=== PATIENT | male | born 1960 | race Caucasian/White ===

== ENCOUNTER → 2024-01-27 07:51 | Outpatient (REF) | payer BC, SELFPAY | LOC: PET 07:51 | PROVIDERS: ATTENDING PHYSICIAN Internal Medicine Hematology & Oncology | DX: C34.12 Malignant neoplasm of upper lobe, left bronchus or lung (principal) | CPT/HCPCS: 78815; A9552 ==

== ENCOUNTER 2024-05-04 06:31 | Day surgery (SDC) | payer BC, SELFPAY ==
[2024-04-27 08:01] VITALS: BMI 30.4
[2024-05-04] VITALS (9 sets, daily range): BP systolic 104–128; BP diastolic 61–85
[2024-05-04] MEDS: TYLENOL 1000 MG PO (11:34)
--- NOTE | 2024-05-04 11:51 | W.SUR.PREOP ---
Pre-Operative Surgical Note
-
Due to surgical delay, access to the robot device unfortunately was not can to be until very late in the afternoon. I did offer the patient will laparoscopic versus open repair and after discussion with the patient and his they have elected to
pursue a laparoscopic right inguinal hernia repair with mesh. All questions answered, consent signed.
I have examined this patient prior to the performance of the scheduled procedure.
The patient's condition is unchanged from the time of the current History and
Physical and the patient is able to undergo the scheduled procedure.
[2024-05-04] MEDS: NORMOSOL-R 1000 IV (11:53)
--- NOTE | 2024-05-04 13:16 | W.IMMPOSTOP ---
Surgical Immed Post Op Note
-
Primary Surgeon: Jonathan Martinez MD
Assisting Surgeon: None
Pre-op Diagnosis: Right inguinal hernia
Post-op Diagnosis: Same
Procedure Performed: Laparoscopic right inguinal hernia repair with mesh (TEP approach)
Anesthesia Type: General
Specimen / Cultures: None
Estimated Blood Loss: 3 cc
Complications: None
Operative Findings: Small indirect inguinal hernia containing preperitoneal fat. No direct or femoral components. Small cord lipoma reduced and resected. Floor reinforced with a large standard weight Bard 3D max uncoated polypropylene mesh.
POST OP PLAN:
Will discharge home after voiding, with an ice pack.
--- NOTE | 2024-05-04 13:18 | OR.RPT ---
Operative Report
Operative Report
Patient Name: Darian Key
: 1960
Date of Operation: 05/04/2024
Preoperative Diagnosis: Reducible Inguinal hernia, right
Postoperative Diagnosis: Same
Procedure(s):
Laparoscopic Inguinal Hernia Repair with mesh, right (TEP approach)
Surgeon(s):
Dr. Martinez
Kitchen Assistant(s):
FREDO Spear
Anesthesia: General
Estimated Blood Loss: 3 cc
Urine Output: None
Drains/Lines/Implants: Large 3D Max Bard Mesh
Specimens: None
Indication for surgery: The patient has a history of groin pain and noted on exam to have a right inguinal Hernia. Though no hernia was appreciated on exam, he was noted to have a possible left inguinal hernia on his CT scan. He was initially
consented for a robotic surgery but due to timing, elected to do a laparoscopic repair instead.
Operative Findings: Small indirect inguinal hernia containing preperitoneal fat. No direct or femoral components. Small cord lipoma reduced and resected. Floor reinforced with a large standard weight Bard 3D max uncoated polypropylene mesh.
Details of the operation:
After inducing general anesthesia and endotracheal intubation, the patient was prepped and draped in the supine position with both arms tucked. After infiltration with 0.25% Marcaine, a Right periumbilical incision was made. Dissection was carried
down to the anterior sheath which was incised and the rectus muscle retracted laterally. An origin balloon was then inserted in through the posterior portion of the rectus into the preperitoneal space. This was insufflated under direct vision and
blunt dissection was therefore achieved in the preperitoneal space. The balloon was then removed and a 12mm Balloon trocar was placed. Two 5-mm ports were also placed in the midline below the camera port. Blunt dissection was used to dissect the
myopectineal orifice with care not to injure the epigastric vessels, gonadals or spermatic cord. Blunt dissection was used to identify the direct, indirect, and femoral spaces.
Right side:
The cord was inspected and an indirect hernia sac was noted and reduced.
There was a small cord lipoma that was reduced and resected.
There was no weakness in the direct space floor.
There was no femoral herniation.
A large 3D max mesh was then placed into position and positioned into the appropriate area to cover all 3 defects. No tacks were used.
The area was then completely infiltrated with 20 cc of Marcaine without epinephrine (0.25%). The insufflation was slowly decreased and the mesh was assured to be in proper position with desufflation. Some intra-abdominal pneumoperitoneum was
evacuated via a small rent made in the posterior rectus sheath, this was closed with a wdgwim-dw-gguyw 0 PDS suture. The Stacy trocar site was also closed with 0 PDS suture in a zoeucp-lj-[id number] fashion. The skin sites were all then closed with
running subcuticular 4-0 Monocryl suture followed by dermabond. Inspection of the scrotum revealed both testes to be in position. The patient returned to the recovery room in stable condition. Sponge and instrument counts were correct. No
specimen sent to pathology
I was the attending physician and performed the procedure with assistance from the RN EMBEDDED above. I was present for all portions of the case
Jonathan Martinez MD
== END 2024-05-04 15:13 | disposition home or self-care (01) ==
LOC: SDS 06:31
PROVIDERS: ATTENDING PHYSICIAN Surgery; FAMILY PHYSICIAN Family Medicine
DX: K40.90 Unilateral inguinal hernia, without obstruction or gangrene, not specified as recurrent (principal)
CPT/HCPCS: 49650; 36415; 93005

== ENCOUNTER → 2024-07-26 07:35 | Outpatient (REF) | payer BC, SELFPAY ==
[2024-07-26 09:15] LABS: ALT (SGPT) 19 U/L (0-50); AST (SGOT) 24 U/L (17-59); Albumin 4.3 g/dl (3.5-5.0); Alkaline Phosphatase 63 U/L (38-126); Blood Urea Nitrogen 18 mg/dl (9-20); Calcium 9.4 mg/dl (8.4-10.2); Carbon Dioxide 32 mmol/L (22-30); Chloride 99 mmol/L (98-107); Direct Bilirubin 0.1 mg/dl (0.0-0.4); Glucose 86 mg/dl (70-99); Potassium 4.1 mmol/L (3.5-5.1); Sodium 143 mmol/L (135-145); Total Bilirubin 0.6 mg/dl (0.2-1.3); eGFR > 60.00
[2024-07-26 09:52] LABS: TSH Reflex To Free T4 3.25 uIU/ml (0.47-4.68)
== END ==
LOC: REG 07:35
PROVIDERS: ATTENDING PHYSICIAN Internal Medicine Hematology & Oncology; FAMILY PHYSICIAN Family Medicine; REFERRING PHYSICIAN Internal Medicine Endocrinology, Diabetes & Metabolism
DX: E27.49 Other adrenocortical insufficiency (principal); C77.1 Secondary and unspecified malignant neoplasm of intrathoracic lymph nodes; C77.0 Secondary and unspecified malignant neoplasm of lymph nodes of head, face and neck; C34.12 Malignant neoplasm of upper lobe, left bronchus or lung
CPT/HCPCS: 36415; 71046; 80053; 82248; 84443

== ENCOUNTER 2024-07-28 06:19 | Day surgery (SDC) | payer BC, SELFPAY ==
[2024-07-14 14:36] VITALS: BMI 30.5
[2024-07-14 15:03] LABS: Hematocrit 41.6 % (39.0-52.0); Hemoglobin 14.2 g/dL (13.0-18.0); Mean Corp Hgb Conc. 34.1 g/dL (33.0-37.0); Mean Corpuscular Hgb 31.6 pg (27.0-31.0); Mean Corpuscular Volume 92.7 fL (80.0-94.0); Mean Platelet Volume 10.5 fL (7.4-10.4); Platelet Count 218 10^3/uL (130-400); Red Blood Cell Count 4.49 10^6/uL (4.70-6.10); Red Cell Dist. Width 11.9 % (11.5-14.5); White Blood Cell Count 5.9 10^3/uL (4.8-10.8)
[2024-07-28] VITALS (8 sets, daily range): BP systolic 107–134; BP diastolic 59–79
[2024-07-28] MEDS: TYLENOL 1000 MG PO (08:00)
[2024-07-28] MEDS: CELEBREX 200 MG PO (08:00)
== END 2024-07-28 11:25 | disposition home or self-care (01) ==
LOC: SDS 06:19
PROVIDERS: ATTENDING PHYSICIAN Specialist; FAMILY PHYSICIAN Family Medicine
DX: S83.242A Other tear of medial meniscus, current injury, left knee, initial encounter (principal); M22.42 Chondromalacia patellae, left knee; X58.XXXA Exposure to other specified factors, initial encounter; M25.562 Pain in left knee; M17.12 Unilateral primary osteoarthritis, left knee
CPT/HCPCS: 29881; 36415; 85027

== ENCOUNTER 2024-08-31 16:39 | Emergency (ER) | payer BC, SELFPAY ==
[2024-08-31 16:41] VITALS: BP 142/79
--- NOTE | 2024-08-31 18:58 | ED.GENMED ---
History of Present Illness
General
Chief Complaint: Back Pain
Source: patient and spouse
Time Seen by Provider: 08/31/24 17:13
History of Present Illness
History of Present Illness:
64-year-old male with past medical history of previous lung cancer, previous DVT, GERD, mild memory impairment presenting to the emergency department for evaluation of lower back pain that started this past Wednesday afternoon without any
exacerbations. Patient reports that day he did go to a local [employer] football game but states he did not do anything out of the ordinary that would have caused the back pain. Patient notes that he has seen pain management and received epidurals in
the past and that he was able to get an appointment with his pain management physician but this was not until the beginning of September. Patient reports that [id number]-[id number] medications have not given him much relief. He denies any fevers, bowel
or urinary incontinence, saddle anesthesias, focal weakness or numbness, traumatic injuries, abnormal weight loss, night sweats or any other concerns. Patient notes that movement seems to cause him the most discomfort.
Past History
Past History
ED Past Medical History: Cancer (Lung), GERD, Psychiatric and Other (DVT)
ED Past Surgical History: Orthopedic and Other
Social History
Tobacco: Former smoker
Alcohol: None
Drug: None
Personal:
Living: with family
Review of Systems
Review of Systems
All Other Systems: ROS reviewed and negative except as documented in HPI and ROS
Phy Exam
Physical Exam
Physical Exam:
GENERAL: Alert , in no apparent distress
EYE: clear conjunctiva b/l
NECK: Supple
ENT: o/p clr, mmm.
BACK: Normal range of motion but has discomfort while doing ROM, no focal tenderness, no midline bony tenderness, no rashes
NEUROLOGICAL: Alert and oriented, no focal neuro deficits. Patellar deep tendon reflexes intact and equal bilaterally, sensation grossly intact and equal to light touch bilateral lower extremities
SKIN: Warm and dry, skin intact.
MUSCULOSKELETAL: No edema, well perfused. EHL intact bilaterally
PSYCH: Normal and appropriate interaction.
Scores
Heart Failure Risk
Heart Failure Risk Score: Not Applicable
Heart Score for Chest Pain Patients
STEMI patient?: Not applicable
Withdrawal Assessment of Alcohol
Withdrawal Assessment Completed?: Not applicable
Course
Orders/Labs/Results
Orders:
Orders
08/31/24 17:40
CR Lumbar Spine Comp Min 4 Vw* Urgent
Comment:
Reason For Exam: low back pain
Vital Signs
Initial and Last Documented VS:
Initial Vital Signs
Temp Pulse Resp BP Pulse Ox
98.0 F 54 19 142/79 98
08/31/24 16:41 08/31/24 16:41 08/31/24 16:41 08/31/24 16:41 08/31/24 16:41
Last Documented Vital Signs
Temp Pulse Resp BP Pulse Ox
98.0 F 51 18 130/73 98
08/31/24 16:41 08/31/24 19:07 08/31/24 19:07 08/31/24 19:07 08/31/24 16:41
MDM/Problems Addressed
Differential Diagnosis Includes:
lumbar strain, spinal stenosis, DDD, disc herniation, nerve impingement, compression fracture. no concern for neurologic claudication/infectious etiology
MDM/Problems Addressed:
64-year-old male presenting to the emergency department for evaluation of lower back pain that started 3 days ago without injury. No focal neurologic symptoms nor infectious symptoms. Symptoms seem to be most pronounced with any type of movement.
I suspect more of a muscular etiology. Patient has had epidurals in the past. Has appointment arranged with a pain management provider. Will obtain x-ray as patient has not had any recent imaging.
*Radiology
Radiology exam reviewed: preliminary read by ED provider (Mild degenerative changes)
*Pulse Oximetry
Patient hypoxic: no
*Critical Care Note
Total Time (30-74mins, 75-104mins- exclusive of procedures): Not Applicable
Data Reviewed
Review of Other/Old Records Reveals: Radiology Studies (Recent PET scan which did not show any acute abnormalities. There was also a bone density scan which did show some osteopenia within the spine)
Patient Management
Escalation/DeEscalation of care consider admission/obs:
Discussed x-ray results with the patient. Prescriptions for Valium and Medrol Dosepak sent to pharmacy. Discussed side effects of Valium including drowsiness and sleepiness and to avoid if driving or mixing with alcohol or operating any heavy
machinery. Patient and expressed understanding. Stable for discharge home.
ED Attending Note
-
Portions of this chart may have been created with voice recognition software.� Occasional wrong word or��sound alike� substitutions may have occurred due to the inherent limitations of voice recognition software.
Discharge Plan
Departure
Patient Disposition: Home (Routine Discharge)
Date of Disposition: 08/31/24
Time of Disposition: 18:58
Patient with high blood pressure during this ER visit?: Yes
Discharge Problem:
Low back pain
Instructions: Low Back Pain (DC)
Prescriptions:
New
diazepam [Valium] 5 mg tablet
5 mg PO BID PRN (Reason: muscle spasm) Qty: 8 0RF
methylprednisolone [Medrol (Leo)] 4 mg tablets,dose pack
4 mg PO DIRECTED Qty: 21 0RF
No Action
acetaminophen 325 MG tablet
650 mg PO Q6HPRN PRN (Reason: mild pain/ fever>100.5F) 0RF
multivitamin [One Daily Essential] 1 EACH tablet
1 ea PO DAILY
magnesium 250 MG tablet
250 mg PO QPM
omeprazole 20 MG tablet,delayed release (DR/EC)
20 mg PO DAILY
hydrocortisone 20 MG tablet
15 mg PO DAILY
hydrocortisone 10 MG tablet
10 mg PO HS
cholecalciferol (vitamin D3) [Vitamin D3] 50 mcg (2,000 unit) Capsule
50 mcg PO DAILY
sertraline 100 mg Tablet
100 mg PO DAILY
aspirin 81 mg Tablet,Chewable
81 mg PO DAILY
calcium citrate 200 mg (950 mg) Tablet
400 mg PO DAILY
Glucosamine Chondroitin 550-30-1 mg Capsule
1 cap PO DAILY
donepezil 10 mg Tablet
10 mg PO DAILY
cetirizine [Zyrtec] 10 mg Tablet
10 mg PO HS
Referrals:
Vincent Portillo MD [Active] - (Pain Management)
Rome Mayberry MD [Family Provider] -
Interventions
Interventions:
*Risk Screen - Suicide Last Done: 08/31/24 16:41
*General Assessment Last Done: 08/31/24 16:41
*Neglect/Abuse Screening Last Done: 08/31/24 16:41
*Nursing Disposition Last Done: 08/31/24 19:07
ED-Musculoskeletal Assessment Last Done: 08/31/24 17:01
Discharge Date and Time
Discharge Date/Time: 08/31/24 19:08
Print Language: LAO
[2024-08-31 19:05] VITALS: BP 130/73
[2024-08-31 19:07] VITALS: BP 130/73
== END 2024-08-31 19:08 | disposition home or self-care (01) ==
LOC: EMR 16:39
PROVIDERS: EMERGENCY PHYSICIAN Emergency Medicine; FAMILY PHYSICIAN Family Medicine
DX: M54.50 Low back pain, unspecified (principal); K21.9 Gastro-esophageal reflux disease without esophagitis; Z86.718 Personal history of other venous thrombosis and embolism; Z87.891 Personal history of nicotine dependence
CPT/HCPCS: 99284; 72110

== ENCOUNTER 2024-12-12 19:18 | Inpatient (IN) | payer BC, MEDICARE, SELFPAY ==
[2024-12-12] VITALS (41 sets, daily range): BP systolic 59–131; BP diastolic 26–84; BMI 31.2
--- NOTE | 2024-12-12 13:28 | ED.GENMED ---
ED Provider Triage
<Roddy Ayon PA-C - Last Filed: 12/12/24 13:38>
-
Patient seen by provider in Triage?: Seen in Triage
Attestation: A medical screening examination has been initiated by a qualified medical provider. Based on the assessment performed at this time, it has been determined that an emergent medical condition may exist and the patient has been informed
that further medical evaluation and possible additional diagnostic testing may be needed.
HPI: 64-year-old male presents with his for evaluation of fever, coughing, and vomiting beginning yesterday. Last given Tylenol at 11 AM. Was tested for flu at home with a rapid csol-nhl-[id number] test and this was negative. History is limited
as the patient has underlying cognitive deficit
GENERAL: Alert , in no apparent distress
EYE: No visual abnormalities.
NECK: Trachea midline
ENT: No visible abnormalities.
LUNGS: No acute respiratory distress
NEUROLOGICAL: Alert and oriented
SKIN: Skin intact. No visible changes.
MUSCULOSKELETAL: Moving extremities normally
PSYCH: Normal and appropriate interaction.
This is a medical evaluation conducted in person to initiate diagnostic evaluation and provide initial therapeutics. Please see further documentation by the treating clinician.
History of Present Illness
<Roddy Ayon PA-C - Last Filed: 12/12/24 13:38>
General
Chief Complaint: Fever
Time Seen by Provider: 12/12/24 14:19
<John Andrea DO - Last Filed: 12/12/24 17:24>
General
Source: patient and spouse
Exam Limitations: none
History of Present Illness
History of Present Illness:
See MDM
Past History
<Roddy Ayon PA-C - Last Filed: 12/12/24 13:38>
Past History
ED Past Medical History: Cancer (Lung), GERD, Psychiatric and Other (DVT)
ED Past Surgical History: Orthopedic and Other
Social History
Tobacco: Former smoker
Alcohol: None
Drug: None
Personal:
Living: with family
Phy Exam
<John Andrea DO - Last Filed: 12/12/24 17:24>
Physical Exam
Physical Exam:
See MDM
Sepsis
<John Andrea DO - Last Filed: 12/12/24 17:24>
Sepsis Screening
Sepsis Assessment: Sepsis Ruled Out
Sepsis Screen
Sepsis Screen: Sepsis Ruled Out
Date: 12/12/24
Time: 17:24
Course
<Roddy Ayon PA-C - Last Filed: 12/12/24 13:38>
Orders/Labs/Results
Orders:
Orders
12/12/24 13:31
CR Chest - 2 Views Urgent
Comment:
Reason For Exam: cough
12/12/24 13:36
0.9% Sodium Chloride 1000 ml [Nss] 1,000 ml IV BOLUS
12/12/24 13:42
COVID-19 Antigen Urgent
Source: Nasal Swab
Complete Blood Count/With Diff Urgent
Comprehensive Metabolic Panel Urgent
Lactic Acid Urgent
Blood Culture Q30M
ANTONIO Source: Blood/Venous
Specimen Description:
Influenza A+B Rapid Molecular Urgent
ANTONIO Source: Nasal Swab
Specimen Description:
12/12/24 14:15
Blood Culture Q30M
ANTONIO Source: Blood/Venous
Specimen Description:
12/12/24 14:25
CT Head W/o Iv Contrast Urgent
Comment:
Reason For Exam: vomiting, headache
12/12/24 17:20
Urinalysis Reflex To Culture Urgent
Abnormal Lab Results
12/12/24
13:42
RBC 4.48 L 10^6/uL
(4.70-6.10)
Abs Immat Gran (auto) 0.1 H 10^3/uL
(0-0.05)
Absolute Monos (auto) 1.3 H 10^3/uL
(0.1-0.6)
Immature Gran % 0.8 H %
(0-0.5)
Lymphocytes % 13.3 L %
(20.5-51.1)
Monocytes % 14.0 H %
(1.7-9.3)
BUN 21 H mg/dl
(9-20)
Creatinine 1.8 H mg/dL
(0.7-1.3)
Total Protein 8.3 H g/dl
(6.3-8.2)
12/12/24 13:42
12/12/24 13:42
Vital Signs
Initial and Last Documented VS:
Initial Vital Signs
Temp Pulse Resp BP Pulse Ox
97.7 F 77 19 75/40 95
12/12/24 13:27 12/12/24 13:27 12/12/24 13:27 12/12/24 13:27 12/12/24 13:27
Last Documented Vital Signs
Temp Pulse Resp BP Pulse Ox
97.7 F 58 21 74/46 96
12/12/24 13:27 12/12/24 16:30 12/12/24 16:30 12/12/24 16:30 12/12/24 16:30
<John Andrea, DO - Last Filed: 12/12/24 17:24>
Orders/Labs/Results
Orders:
Orders
12/12/24 13:31
CR Chest - 2 Views Urgent
Comment:
Reason For Exam: cough
12/12/24 13:36
0.9% Sodium Chloride 1000 ml [Nss] 1,000 ml IV BOLUS
12/12/24 13:42
COVID-19 Antigen Urgent
Source: Nasal Swab
Complete Blood Count/With Diff Urgent
Comprehensive Metabolic Panel Urgent
Lactic Acid Urgent
Blood Culture Q30M
ANTONIO Source: Blood/Venous
Specimen Description:
Influenza A+B Rapid Molecular Urgent
ANTONIO Source: Nasal Swab
Specimen Description:
12/12/24 14:15
Blood Culture Q30M
ANTONIO Source: Blood/Venous
Specimen Description:
12/12/24 14:25
CT Head W/o Iv Contrast Urgent
Comment:
Reason For Exam: vomiting, headache
12/12/24 17:20
Urinalysis Reflex To Culture Urgent
Abnormal Lab Results
12/12/24
13:42
RBC 4.48 L 10^6/uL
(4.70-6.10)
Abs Immat Gran (auto) 0.1 H 10^3/uL
(0-0.05)
Absolute Monos (auto) 1.3 H 10^3/uL
(0.1-0.6)
Immature Gran % 0.8 H %
(0-0.5)
Lymphocytes % 13.3 L %
(20.5-51.1)
Monocytes % 14.0 H %
(1.7-9.3)
BUN 21 H mg/dl
(9-20)
Creatinine 1.8 H mg/dL
(0.7-1.3)
Total Protein 8.3 H g/dl
(6.3-8.2)
12/12/24 13:42
12/12/24 13:42
Vital Signs
Initial and Last Documented VS:
Initial Vital Signs
Temp Pulse Resp BP Pulse Ox
97.7 F 77 19 75/40 95
12/12/24 13:27 12/12/24 13:27 12/12/24 13:27 12/12/24 13:27 12/12/24 13:27
Last Documented Vital Signs
Temp Pulse Resp BP Pulse Ox
97.7 F 58 21 74/46 96
12/12/24 13:27 12/12/24 16:30 12/12/24 16:30 12/12/24 16:30 12/12/24 16:30
<John Andrea, DO - Last Filed: 12/12/24 17:24>
MDM/Problems Addressed
Differential Diagnosis Includes:
HPI and MDM Narrative:
64-year-old male presenting for evaluation of fatigue, fever and vomiting. Spouse noted fever yesterday. Patient was given Tylenol this morning but patient currently afebrile. Patient was found to be hypotensive in the emergency department. He
was brought back to the emergency department. IV fluids started. Blood work was obtained showing no significant abnormality other than mild evidence of dehydration. 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
the questions. Patient is able to acknowledge that he has a headache and does not feel well.
Given his history, will obtain CT head. IV fluids started. Given the fever and mild cough, will obtain chest x-ray. COVID and flu negative
Physical exam
General: Well appearing and non-toxic. Sitting in bed comfortably
HEENT: protecting airway. Dry mucous membranes
Neck: appears supple
CV: No evidence of cyanosis. Regular rate and rhythm
Resp: No accessory muscle use.
Abd: Non-distended
Extremities: No deformities
Neuro: alert
Psych: Normal affect
Skin: Intact
Problems Addressed including Acute and Chronic Conditions affecting care:
1. Dehydration
Acuity: acute
Prognosis: stable
Details: Will continue IV fluids
2. Vomiting and headache
Acuity: acute
Prognosis: stable
Details: Will obtain CT head
Updates
After 1 L IV fluid, patient looks better but still mildly hypotensive. Will continue IV fluids and admit. Patient is tolerating p.o. No source of fever obtained but will obtain urinalysis despite not having symptoms
Differential Diagnosis (but not limited to): Intracranial hemorrhage, viral syndrome, dehydration
Testing considered: Norovirus testing
Drug therapy (if applicable): OTC meds, please see d/c instruction regarding Rx drugs
Amount and/or Complexity of Data Reviewed
Clinical info obtained from: Patient and spouse
External data reviewed: N/A
Labs I independently reviewed (but not limited to): White blood cell count and lactic acid normal, mildly elevated creatinine
Radiology: The CT scan was personally and independently reviewed. In addition, official CT report reviewed.
X-ray independently reviewed: Chest x-ray clear
Pulse Ox: not hypoxic
EKG independently reviewed: N/A
Dry Drug Worker: Sinus rhythm
Critical Care: N/A
Risk of Complication:
Social Determinants of health: Good social support
Discussed with other providers: Hospitalist
Escalation of Care includes Admit/Obs: Given persistent hypotension, will continue IV fluid and admit
Occasional wrong word or 'sound a like' substitutions may have occurred due to the inherent limitations of voice recognition software. Read the chart carefully and recognize, using context, where substitutions have occurred.
<John Andrea DO - Last Filed: 12/12/24 17:24>
*Critical Care Note
Total Time (30-74mins, 75-104mins- exclusive of procedures): Not Applicable
ED Attending Note
<Roddy Ayon PA-C - Last Filed: 12/12/24 13:38>
-
Portions of this chart may have been created with voice recognition software.� Occasional wrong word or��sound alike� substitutions may have occurred due to the inherent limitations of voice recognition software.
Discharge Plan
Departure
Patient Disposition: Admit
Date of Disposition: 12/12/24
Time of Disposition: 17:23
Admit to: Med/Surg
Presentation/result/management discussed w/ accepting MD/DO: Hospitalist
Discharge Problem:
Dehydration, Weakness
Prescriptions:
No Action
acetaminophen 325 MG tablet
650 mg PO Q6HPRN PRN (Reason: mild pain/ fever>100.5F) 0RF
multivitamin [One Daily Essential] 1 EACH tablet
1 ea PO DAILY
magnesium 250 MG tablet
250 mg PO QPM
omeprazole 20 MG tablet,delayed release (DR/EC)
20 mg PO DAILY
hydrocortisone 20 MG tablet
15 mg PO DAILY
hydrocortisone 10 MG tablet
10 mg PO HS
cholecalciferol (vitamin D3) [Vitamin D3] 50 mcg (2,000 unit) Capsule
50 mcg PO DAILY
sertraline 100 mg Tablet
100 mg PO DAILY
aspirin 81 mg Tablet,Chewable
81 mg PO DAILY
calcium citrate 200 mg (950 mg) Tablet
400 mg PO DAILY
Glucosamine Chondroitin 550-30-1 mg Capsule
1 cap PO DAILY
donepezil 10 mg Tablet
10 mg PO DAILY
cetirizine [Zyrtec] 10 mg Tablet
10 mg PO HS
diazepam [Valium] 5 mg tablet
5 mg PO BID PRN (Reason: muscle spasm) Qty: 8 0RF
methylprednisolone [Medrol (Leo)] 4 mg tablets,dose pack
4 mg PO DIRECTED Qty: 21 0RF
Referrals:
Rome Mayberry MD [Family Provider] -
Interventions
Interventions:
*Risk Screen - Suicide Last Done: 12/12/24 14:45
*General Assessment Last Done: 12/12/24 14:17
*Neglect/Abuse Screening Last Done: 12/12/24 14:45
ED- Fall Risk Assessment Last Done: 12/12/24 14:47
*ED COVID-19 Vaccine History Last Done: 12/12/24 14:18
ED- Neurological Assessment Last Done: 12/12/24 14:45
ED-Skin Assessment Last Done: 12/12/24 14:47
Discharge Date and Time
Print Language: SWAZI
[2024-12-12] MEDS: NSS 1000 IV ×2 (13:45→22:16)
[2024-12-12 13:56] LABS: % Basophils 0.2 % (0-2); % Eosinophils 0.3 % (0-6); % Immature Granulocytes 0.8 % (0-0.5); % Lymphocytes 13.3 % (20.5-51.1); % Neutrophils 71.4 % (42.2-75.2); Absolute Immature Granulocytes 0.1 10^3/uL (0-0.05); Absolute Lymphocytes 1.2 10^3/uL (1.2-3.4); Absolute Monocytes 1.3 10^3/uL (0.1-0.6); Absolute Neutrophils 6.4 10^3/uL (1.4-6.5); Hematocrit 39.9 % (39.0-52.0); Hemoglobin 13.4 g/dL (13.0-18.0); Mean Corp Hgb Conc. 33.6 g/dL (33.0-37.0); Mean Corpuscular Hgb 29.9 pg (27.0-31.0); Mean Corpuscular Volume 89.1 fL (80.0-94.0); Mean Platelet Volume 10.4 fL (7.4-10.4); Nucleated Red Blood Cells % 0 % (-); Platelet Count 199 10^3/uL (130-400); Red Blood Cell Count 4.48 10^6/uL (4.70-6.10); Red Cell Dist. Width 12.3 % (11.5-14.5)
[2024-12-12 14:09] LABS: Lactic Acid 1.1 mmol/L (0.7-2.0)
[2024-12-12 14:10] LABS: ALT (SGPT) 17 U/L (0-50); AST (SGOT) 30 U/L (17-59); Albumin 4.8 g/dl (3.5-5.0); Alkaline Phosphatase 58 U/L (38-126); Blood Urea Nitrogen 21 mg/dl (9-20); Calcium 8.7 mg/dl (8.4-10.2); Carbon Dioxide 26 mmol/L (22-30); Chloride 98 mmol/L (98-107); Glucose 93 mg/dl (70-99); Potassium 3.8 mmol/L (3.5-5.1); Sodium 137 mmol/L (135-145); Total Bilirubin 0.8 mg/dl (0.2-1.3); Total Protein 8.3 g/dl (6.3-8.2)
[2024-12-12 14:16] LABS: COVID-19 Antigen Negative (Negative)
--- NOTE | 2024-12-12 18:21 | HPS.HSE ---
Family Physician
-
Family Physician: Rome Mayberry
Chief Complaint
-
Cough, vomiting
History of Present Illness
64-year-old male here complaining of cough, fever, for the past few days. was ill and diagnosed with acute influenza infection. Patient vomited this morning.
Patient is a limited historian and all information gathered by speaking with his . Patient does have dementia.
We were asked admit to the hospital due to persistent hypotension.
Medical History
Past Medical History
Past Medical History: Reports Other
Additional Past Medical History:
Adrenal insufficiency due to pembrolizumab
Primary progressive aphasia, dementia
History of non-small cell lung cancer, left upper lobe
Rheumatoid arthritis, in remission
Depression
Past Surgical History: Reports None
Social History
Tobacco: Former Smoker
Alcohol: None
Drug: None
Personal:
Living: With Family
Employment: Not Employed
Family History
Family History: Not pertinent
Allergies / Home Medications
Allergies reflects when Allergies were last updated in [facility].
Home Medications with original date entered in [facility]
Allergy/Medication List:
Allergies
Allergy/AdvReac Type Severity Reaction Status Date / Time
indomethacin [From Indocin] Allergy Unknown Unknown Verified 12/12/24 13:49
Home Medications
acetaminophen 325 mg tablet 650 mg (2 x 325 mg) PO Q6HPRN PRN mild pain/ fever>100.5F 07/20/20
magnesium 250 mg tablet 250 mg PO QPM Electrolyte Repletion 12/15/20
multivitamin (One Daily Essential tablet) 1 ea PO DAILY Supplement 12/15/20
omeprazole 20 mg tablet,delayed release 20 mg PO DAILY Gastrointestinal issue 12/15/20
hydrocortisone 10 mg tablet 10 mg PO HS Anti-inflammatory 12/16/20
hydrocortisone 20 mg tablet 15 mg PO DAILY Anti-inflammatory 12/16/20
cholecalciferol (vitamin D3) 50 mcg (2,000 unit) capsule (Vitamin D3) 50 mcg PO DAILY 09/07/22
aspirin 81 mg chewable tablet 81 mg PO DAILY 05/01/24
calcium citrate 400 mg PO DAILY 05/01/24
donepezil 10 mg tablet 10 mg PO DAILY 05/01/24
glucosamine sulf dipot chlr,msm,chond 550 mg-C 30 mg-sabina 1 mg capsule (Glucosamine Chondroitin) 1 cap PO DAILY 05/01/24
sertraline 100 mg tablet 100 mg PO DAILY 05/01/24
cetirizine 10 mg tablet (Zyrtec) 10 mg PO HS 07/21/24
diazepam 5 mg tablet (Valium) 5 mg PO BID PRN muscle spasm #8 tabs 08/31/24
methylprednisolone 4 mg tablets in a dose pack (Medrol (Leo)) 4 mg PO DIRECTED #21 ea 08/31/24
Review of Systems
-
Unable to obtain full review of systems at this time due to: Dementia
History Source: Patient and Family
A 12 point ROS was completed and negative except as noted: Yes
Physical Exam
Vital Signs
Vital Signs
Temp Pulse Resp BP Pulse Ox
97.7 F 53 21 97/45 100
12/12/24 13:27 12/12/24 18:15 12/12/24 18:15 12/12/24 18:15 12/12/24 18:15
Physical Exam
General: Well Developed, Well Nourished, No Apparent Distress and Comfortable
HEENT: NormoCephalic, Anicteric and Moist mucous membranes
Respiratory: Clear
Cardiac: S1/S2 and Regular Rhythm
Breast: Deferred by me
GI: Soft, Non Tender and Non Distended
Genito-urinary: Deferred by me
Musculoskeletal: No Clubbing, No Cyanosis and No Edema
Skin: Warm and Dry
Neuro: Awake and Alert
Hematologic/Lymphatic: No Lymphadenopathy
Psych: Calm
Laboratory Results
-
12/12/24 13:42
12/12/24 13:42
Laboratory Results
Lactic Acid 1.1 mmol/L (0.7-2.0) 12/12/24 13:42
Total Bilirubin 0.8 mg/dl (0.2-1.3) 12/12/24 13:42
AST 30 U/L (17-59) 12/12/24 13:42
ALT 17 U/L (0-50) 12/12/24 13:42
Alkaline Phosphatase 58 U/L (38-126) 12/12/24 13:42
Impression/Plan
-
Persistent hypotension -likely due to acute illness in the setting of chronic adrenal insufficiency and insufficient adrenal response. Give a stat dose of IV hydrocortisone 100 mg now. Continue IV hydrocortisone every 8 hours.
Continue IV fluid administration.
Admit to IMU. If hypotension persists will need vasopressor support and possible transfer to ICU. Discussed with at the bedside.
Does not look septic or toxic on exam. Not tachycardic. WBC count normal.
Patient is on chronic hydrocortisone 15 mg in the morning, 10 mg in the evening. He is under the care of endocrinology, Dr. Nj. He has been told in the past to double doses of steroids when ill, but his did not get a chance to double
the dose prior to coming into the hospital.
SEDRICK -suspect due to volume depletion and hypotension. Continue IV fluid support. Check bladder scan. Recheck labs in the morning.
History of lung cancer -treated with Keytruda and radiation.
Chronic adrenal insufficiency -due to pembrolizumab according to . On chronic hydrocortisone. Give stress dose steroids for the next 24 hours until hypotension resolves.
Primary progressive aphasia, dementia
Obesity due to excess calories
Full code
updated at the bedside.
[2024-12-12] MEDS: SOLU-CORTEF 100 MG IV (18:25)
[2024-12-12] MEDS: MUCINEX 600 MG PO (22:09)
[2024-12-12] MEDS: HEPARIN 5000 UNITS SC (22:10)
[2024-12-12] MEDS: ARICEPT 10 MG PO (22:11)
[2024-12-12 23:16] LABS: Urine Albumin 1+ (Neg - Trace); Urine Bilirubin Negative (Negative); Urine Character Clear (Clear); Urine Color Yellow; Urine Glucose Negative (Negative); Urine Ketone Negative (Negative); Urine Leukocyte Negative (Negative); Urine Nitrite Negative (Negative); Urine Occult Blood 1+ (Negative); Urine Specific Gravity 1.015 (<1.030); Urine Urobilinogen Negative (Neg - 1+)
[2024-12-13] VITALS (19 sets, daily range): BP systolic 93–129; BP diastolic 56–75
[2024-12-13] MEDS: TYLENOL 650 MG PO (00:05)
[2024-12-13 00:14] LABS: Urine Mucus Few
[2024-12-13 00:15] LABS: Urine Bacteria Moderate (Negative)
[2024-12-13] MEDS: SOLU-CORTEF 50 MG IV ×2 (02:20→10:53)
[2024-12-13 05:14] LABS: Blood Urea Nitrogen 18 mg/dl (9-20); Calcium 8.6 mg/dl (8.4-10.2); Carbon Dioxide 25 mmol/L (22-30); Chloride 102 mmol/L (98-107); Estimated Creatinine Clearance 101 ml/min; Glucose 120 mg/dl (70-99); Sodium 140 mmol/L (135-145); eGFR > 60.00
[2024-12-13] MEDS: PROTONIX 40 MG PO (07:55)
[2024-12-13] MEDS: MUCINEX 600 MG PO (07:55)
[2024-12-13] MEDS: ZOLOFT 150 MG PO (07:55)
[2024-12-13] MEDS: HEPARIN 5000 UNITS SC (07:56)
[2024-12-13] MEDS: NSS 1000 IV (08:01)
--- NOTE | 2024-12-13 11:55 | W.PN.HOSP.TC ---
Addendum entered and electronically signed by Mahesh Wheat DO 12/13/24 14:03:
Blood culture negative so far.
Hemodynamically improved. Patient feels well, no complaints.
Mild procalcitonin elevation noted, 0.64.
Clinically however I feel that he has a acute viral bronchitis. No evidence of pneumonia on chest x-ray. He is not hypoxic. No signs of sepsis.
Medically stable for discharge home today on double dose hydrocortisone for the next 48 hours. Follow-up closely with PCP and endocrinology.
All discharge instructions were provided to the patient's . All questions were answered.
Original Note:
Today's Communication/Plan
-
Check procalcitonin
Assessment / Plan
Assessment / Plan
Gen-awake, alert, NAD
HEENT-NC, AT, anicteric, clear oral mm
Neck-supple
CV-reg, no M, +S1/S2
Lungs-clear B/L
Abd-soft, NT, ND
Ext-no edema
Musculoskeletal-no cyanosis, clubbing
Skin-warm and dry
Neuro-grossly non-focal
Psych-calm, cooperative
Persistent hypotension -likely due to acute illness in the setting of chronic adrenal insufficiency and insufficient adrenal response.
Hypotension resolved with stress dose IV steroids.
Discussed with at the bedside to double up home doses of hydrocortisone on discharge for the next 48 hours and touch base with Dr. Nj, the patient's sound person.
Acute bronchitis - likely viral. Continue supportive treatment. Check procalcitonin.
SEDRICK -suspect due to volume depletion and hypotension. SEDRICK resolved.
History of lung cancer -treated with Keytruda and radiation.
Chronic adrenal insufficiency -due to pembrolizumab according to . On chronic hydrocortisone.
Primary progressive aphasia, dementia
Obesity due to excess calories
Full code
Dispo -possible discharge today if procalcitonin normal. Outpatient follow-up.
updated at the bedside.
Anticipated Discharge: Today
Subjective/Interval History
-
Date of Service: December 13, 2024
Patient seen/examined, no complaints.
Objective Data
-
Labs:
Laboratory Results
12/13/24
04:27
Sodium 140
Potassium 4.0
Chloride 102
Carbon Dioxide 25
BUN 18
Creatinine 0.9
Glucose 120 H
Calcium 8.6
Vital Signs:
Vital Signs
Temp Pulse Resp BP Pulse Ox
98.4 F 59 24 124/75 99
12/13/24 07:23 12/13/24 10:00 12/13/24 10:00 12/13/24 09:00 12/13/24 08:15
Review of Systems
-
History Source: Patient
All other systems: Reviewed and negative
[2024-12-13 12:20] LABS: Procalcitonin 0.64 ng/ml (0.0-0.25)
--- NOTE | 2024-12-13 14:02 | W.DS.TRANS ---
DC Summary - Yard Conductor
-
Discharge Instructions:
Discharge Diagnosis/Procedures Acute viral bronchitis
Diet Regular
Activity As tolerated
Driving Restrictions No driving
Bathing Restrictions None
Instructions:
Stand-Alone Forms:
Changes to Home Medications: No
Discharge Medications:
DC Medications w/original date entered in [facility]
acetaminophen 325 mg tablet 650 mg (2 x 325 mg) PO Q6HPRN PRN mild pain/ fever>100.5F 07/20/20
magnesium 250 mg tablet 250 mg PO QPM Electrolyte Repletion 12/15/20
multivitamin (One Daily Essential tablet) 1 ea PO DAILY Supplement 12/15/20
omeprazole 20 mg tablet,delayed release 20 mg PO DAILY Gastrointestinal issue 12/15/20
hydrocortisone 10 mg tablet 10 mg PO HS Anti-inflammatory 12/16/20
hydrocortisone 20 mg tablet 15 mg PO DAILY Anti-inflammatory 12/16/20
cholecalciferol (vitamin D3) 50 mcg (2,000 unit) capsule (Vitamin D3) 50 mcg PO DAILY 09/07/22
aspirin 81 mg chewable tablet 81 mg PO DAILY 05/01/24
calcium citrate 400 mg PO DAILY 05/01/24
donepezil 10 mg tablet 10 mg PO DAILY 05/01/24
diazepam 5 mg tablet (Valium) 5 mg PO BID PRN muscle spasm #8 tabs 08/31/24
sertraline 150 mg capsule 150 mg PO DAILY 12/12/24
guaifenesin 600 mg tablet, extended release 12 hr 600 mg PO Q12 #14 tabs 12/13/24
Home Medication Changes
Pending Results: No
== END 2024-12-13 14:54 | disposition home or self-care (01) | DRG 202 ==
LOC: ED 19:18
PROVIDERS: Physician Assistant; ADMITTING PHYSICIAN Hospitalist; EMERGENCY PHYSICIAN Student in an Organized Health Care Education/Training Program; FAMILY PHYSICIAN Family Medicine
DX: J20.8 Acute bronchitis due to other specified organisms (principal); N17.9 Acute kidney failure, unspecified; Z87.891 Personal history of nicotine dependence; Z11.52 Encounter for screening for COVID-19; E66.09 Other obesity due to excess calories; Z68.31 Body mass index [BMI] 31.0-31.9, adult
CPT/HCPCS: 70450; 71046; 80048; 80053; 81003; 81015; 83605; 84145; 85025; 87040; 87086; 87150; 87205; 87502; 87811

== ENCOUNTER → 2025-01-01 08:04 | Outpatient (REF) | payer BC, SELFPAY ==
[2025-01-01 09:27] LABS: % Basophils 0.6 % (0-2); % Eosinophils 2.7 % (0-6); % Immature Granulocytes 0.3 % (0-0.5); % Lymphocytes 20.9 % (20.5-51.1); % Monocytes 7.8 % (1.7-9.3); % Neutrophils 67.7 % (42.2-75.2); Absolute Eosinophils 0.2 10^3/uL (0-0.7); Absolute Lymphocytes 1.4 10^3/uL (1.2-3.4); Absolute Monocytes 0.5 10^3/uL (0.1-0.6); Absolute Neutrophils 4.4 10^3/uL (1.4-6.5); Hematocrit 41.1 % (39.0-52.0); Hemoglobin 13.2 g/dL (13.0-18.0); Mean Corp Hgb Conc. 32.1 g/dL (33.0-37.0); Mean Corpuscular Hgb 29.5 pg (27.0-31.0); Mean Corpuscular Volume 91.9 fL (80.0-94.0); Mean Platelet Volume 10.9 fL (7.4-10.4); Nucleated Red Blood Cells % 0 % (-); Platelet Count 220 10^3/uL (130-400); Red Blood Cell Count 4.47 10^6/uL (4.70-6.10); Red Cell Dist. Width 12.7 % (11.5-14.5); White Blood Cell Count 6.6 10^3/uL (4.8-10.8)
[2025-01-01 10:16] LABS: ALT (SGPT) 17 U/L (0-50); AST (SGOT) 23 U/L (17-59); Albumin 4.4 g/dl (3.5-5.0); Alkaline Phosphatase 62 U/L (38-126); Blood Urea Nitrogen 14 mg/dl (9-20); Calcium 9.6 mg/dl (8.4-10.2); Carbon Dioxide 29 mmol/L (22-30); Chloride 100 mmol/L (98-107); Glucose 89 mg/dl (70-99); Potassium 4.2 mmol/L (3.5-5.1); Sodium 139 mmol/L (135-145); Total Bilirubin 0.8 mg/dl (0.2-1.3); Total Protein 7.3 g/dl (6.3-8.2); eGFR > 60.00
[2025-01-01 10:25] LABS: TSH Reflex To Free T4 3.02 uIU/ml (0.47-4.68)
[2025-01-01 10:44] LABS: Vitamin B12 624 pg/ml (239-931)
== END ==
LOC: REG 08:04
PROVIDERS: ATTENDING PHYSICIAN Family Medicine
DX: C34.92 Malignant neoplasm of unspecified part of left bronchus or lung (principal); G93.41 Metabolic encephalopathy; E27.40 Unspecified adrenocortical insufficiency; D63.8 Anemia in other chronic diseases classified elsewhere; R79.9 Abnormal finding of blood chemistry, unspecified; R63.4 Abnormal weight loss; G93.40 Encephalopathy, unspecified; F32.1 Major depressive disorder, single episode, moderate; C34.90 Malignant neoplasm of unspecified part of unspecified bronchus or lung
CPT/HCPCS: 36415; 80053; 82607; 84443; 85025

== ENCOUNTER 2025-01-12 21:31 | Emergency (ER) | payer BC, MEDICARE, SELFPAY ==
[2025-01-12 21:33] VITALS: BP 126/99
[2025-01-12 22:23] VITALS: BMI 30.9
[2025-01-12 22:24] VITALS: BP 133/76
[2025-01-12] MEDS: ATIVAN 1 MG PO (22:35)
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
[2025-01-12 23:02] VITALS: BP 122/76
[2025-01-13] VITALS: BP 112/90
[2025-01-13 03:00] VITALS: BP 134/72
[2025-01-13 08:35] VITALS: BP 151/76
[2025-01-13] MEDS: ARICEPT 10 MG PO (09:34)
[2025-01-13] MEDS: ZOLOFT 50 MG PO (09:34)
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
[2025-01-13] MEDS: ABILIFY 2 MG PO (12:11)
[2025-01-13 12:18] VITALS: BP 134/78
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
[2025-01-13] MEDS: VERSED 5 MG IM (17:12)
[2025-01-13 17:25] VITALS: BP 127/78
[2025-01-13 17:32] LABS: % Basophils 0.6 % (0-2); % Eosinophils 3.6 % (0-6); % Immature Granulocytes 0.4 % (0-0.5); % Lymphocytes 17.4 % (20.5-51.1); % Monocytes 10.5 % (1.7-9.3); % Neutrophils 67.5 % (42.2-75.2); Absolute Eosinophils 0.3 10^3/uL (0-0.7); Absolute Lymphocytes 1.2 10^3/uL (1.2-3.4); Absolute Monocytes 0.7 10^3/uL (0.1-0.6); Absolute Neutrophils 4.7 10^3/uL (1.4-6.5); Hematocrit 35.7 % (39.0-52.0); Hemoglobin 12.1 g/dL (13.0-18.0); Mean Corp Hgb Conc. 33.9 g/dL (33.0-37.0); Mean Corpuscular Hgb 29.7 pg (27.0-31.0); Mean Corpuscular Volume 87.7 fL (80.0-94.0); Mean Platelet Volume 9.7 fL (7.4-10.4); Nucleated Red Blood Cells % 0 % (-); Platelet Count 236 10^3/uL (130-400); Red Blood Cell Count 4.07 10^6/uL (4.70-6.10); Red Cell Dist. Width 12.7 % (11.5-14.5); White Blood Cell Count 6.9 10^3/uL (4.8-10.8)
[2025-01-13 17:35] LABS: Urine Albumin 1+ (Neg - Trace); Urine Bilirubin Negative (Negative); Urine Character Clear (Clear); Urine Color Yellow; Urine Glucose Negative (Negative); Urine Ketone Negative (Negative); Urine Leukocyte 1+ (Negative); Urine Nitrite Negative (Negative); Urine Occult Blood Negative (Negative); Urine Urobilinogen 1+ (Neg - 1+)
[2025-01-13 17:48] LABS: COVID-19 Antigen Negative (Negative)
[2025-01-13 18:03] LABS: Amphetamines Negative (Negative); Barbiturates Negative (Negative); Benzodiazepines Positive (Negative); Buprenorphine Negative (Negative); Cocaine Negative (Negative); Marijuana Negative (Negative); Methadone Negative (Negative); Methamphetamines Negative (Negative); Opiates Negative (Negative); Phencyclidine Negative (Negative); Tricyclic Antidepressants Negative (Negative)
[2025-01-13 18:10] LABS: Urine Bacteria Few (Negative); Urine Red Blood Cell 0-2 /HPF (0-2); Urine Squamous Cell 0-2 /LPF (Few); Urine White Cell 0-2 /HPF (0-5)
[2025-01-13 18:23] LABS: ALT (SGPT) 15 U/L (0-50); AST (SGOT) 22 U/L (17-59); Acetaminophen < 10 ug/ml (10-30); Albumin 3.9 g/dl (3.5-5.0); Alkaline Phosphatase 63 U/L (38-126); Blood Urea Nitrogen 12 mg/dl (9-20); Calcium 9.4 mg/dl (8.4-10.2); Carbon Dioxide 27 mmol/L (22-30); Chloride 100 mmol/L (98-107); Estimated Creatinine Clearance 100 ml/min; Glucose 96 mg/dl (70-99); Potassium 3.8 mmol/L (3.5-5.1); Sodium 137 mmol/L (135-145); Total Bilirubin 0.6 mg/dl (0.2-1.3); Total Protein 6.9 g/dl (6.3-8.2); eGFR > 60.00
[2025-01-13 18:26] LABS: Alcohol None Detected
[2025-01-13 18:33] LABS: Fentanyl, Urine Negative (Negative)
[2025-01-13 18:36] LABS: TSH Reflex To Free T4 3.12 uIU/ml (0.47-4.68)
[2025-01-13 22:32] VITALS: BP 118/78
[2025-01-14] MEDS: ATIVAN 1 MG PO (01:23)
[2025-01-14] MEDS: ABILIFY 2 MG PO (09:00)
[2025-01-14 09:05] VITALS: BP 114/79
[2025-01-14 17:00] VITALS: BP 117/81
== END 2025-01-14 21:35 ==
LOC: EMR 21:31
PROVIDERS: CONSULT PHYSICIAN Psychiatry & Neurology Psychiatry; EMERGENCY PHYSICIAN Emergency Medicine; FAMILY PHYSICIAN Family Medicine
DX: R41.82 Altered mental status, unspecified (principal); F02.811 Dementia in other diseases classified elsewhere, unspecified severity, with agitation; Z11.52 Encounter for screening for COVID-19; Z87.891 Personal history of nicotine dependence; Z85.118 Personal history of other malignant neoplasm of bronchus and lung
CPT/HCPCS: 99285; 96372; 70450; 80053; 80143; 80306; 80307; 81003; 81015; 82077; 84443; 85025; 87086; 87811; 93005

== ENCOUNTER 2025-06-14 01:28 | Inpatient (IN) | payer BC, SELFPAY ==
[2025-06-13] VITALS (28 sets, daily range): BP systolic 83–160; BP diastolic 53–142; BMI 26.2
[2025-06-13 16:57] LABS: Hematocrit 30.4 % (39.0-52.0); Hemoglobin 10.0 g/dL (13.0-18.0); Mean Corp Hgb Conc. 32.9 g/dL (33.0-37.0); Mean Corpuscular Volume 88.6 fL (80.0-94.0); Nucleated Red Blood Cells % 0 % (-); Platelet Count 230 10^3/uL (130-400); Red Cell Dist. Width 12.8 % (11.5-14.5)
[2025-06-13 17:05] LABS: Glucose - Point of Care 140 mg/dl (70-99)
--- NOTE | 2025-06-13 17:06 | ED.GENMED ---
History of Present Illness
<Mahogany Harry MD - Last Filed: 06/13/25 20:08>
General
Chief Complaint: Change in Mental Status
Source: patient and records
Time Seen by Provider: 06/13/25 16:47
History of Present Illness
History of Present Illness:
This patient is a 65-year-old male presents the emergency department for reported change in mental status. Patient reportedly had a fall on Wednesday and he has a hematoma noted on the right side of his head. History limited given patient's history
of dementia. Reportedly staff noted 'slow' pupillary constriction and dark benitez colored stool. As per EMS staff, patient is at baseline. History unavailable from patient given dementia but he does not appear to be having any discomfort.
Past History
<Mahogany Harry MD - Last Filed: 06/13/25 20:08>
Past History
ED Past Medical History: Cancer (Lung in remission since January 2020), GERD, Psychiatric (Primary progressive aphasia with dementia) and Other (DVT)
ED Past Surgical History: Orthopedic and Other
Social History
Tobacco: Former smoker
Alcohol: None
Drug: None
Personal:
Living: with family
Employment: Retired
Family History
Family History: Other (Noncontributory)
Phy Exam
<Mahogany Harry MD - Last Filed: 06/13/25 20:08>
Physical Exam
Physical Exam:
GENERAL: Alert , in no apparent distress
EYE: pupils equal and reactive
NECK: Supple, no significant adenopathy, no midline tenderness.
ENT: o/p clr, mmm, there is a resolving hematoma noted at the left lateral forehead area.
CARDIAC: Regular rate and rhythm .
LUNGS: Clear breath sounds bilaterally, no acute respiratory distress, no wheezes/rales/rhonchi
ABDOMEN: Soft, without focal tenderness, no r/g, no cvat
NEUROLOGICAL: Awake and alert, confused, becoming slightly agitated, moves all extremities equally, no facial droop, speech clear
SKIN: Warm and dry, skin intact.
MUSCULOSKELETAL: No edema, well perfused.
PSYCH: Slight agitation
Course
<Mahogany Harry MD - Last Filed: 06/13/25 20:08>
Orders/Labs/Results
Orders:
Orders
06/13/25 16:34
Electrocardiogram (*1) Urgent
Reason for Study: Bradycardia / Tachycardia
06/13/25 16:35
EKG- Treatment ONCE
06/13/25 16:37
Complete Blood Count/With Diff Urgent
Comprehensive Metabolic Panel Urgent
PTT Urgent
Prothrombin Time Urgent
06/13/25 16:45
CT Head W/o Iv Contrast Urgent
Comment:
Reason For Exam: unwitnessed fall
Cervical Spine wo Contrast CT [CT Cervical Spine W/o Iv Contr] Urgent
Comment:
Reason For Exam: Unwitnessed fall
06/13/25 17:09
Lorazepam [Ativan] 1 mg IV NOW STA
06/13/25 17:55
Ankle, left 3 view CR [CR Ankle - Left Min 3 Views ] Urgent
Comment:
Reason For Exam: fall
06/13/25 19:36
Quetiapine Fumarate [Seroquel] 75 mg PO NOW STA
06/13/25 19:38
Midazolam HCl [Versed] 2 mg IM NOW STA
06/13/25 20:14
Hydrocortisone [Cortef] 5 mg PO NOW STA
06/13/25 22:45
Propofol [Diprivan] 20 ml .ROUTE .STK-MED
06/14/25 00:11
Pantoprazole [Protonix IV] 80 mg IV NOW STA
06/14/25 00:23
Urinalysis Reflex To Culture Urgent
Date Specimen was Collected: 06/14/25
Time Specimen was Collected: 00:18
06/14/25 00:42
Type+Screen Urgent
06/14/25 01:02
Admit/Transfer Patient As Directed
Co-Sign Provider:
Level of Care: Inpatient admission
Assign to:: Telemetry
Physician / Group: Kulwant
Diagnosis: GI bleed
Reason for Telemetry: Other
Other Reason for Telemetry: gi bleed
Date to Stop Telemetry: 06/16/25
Time to Stop Telemetry: 11:00
Reason for Hospitalization: GI bleed
Expected length of stay greater than two midnights?: Yes
ELOS- Estimated Length of Stay in days: 2
I certify the patient meets the requirements for IP care: Yes
PRN Pain Medication Management As Directed
May give lesser potent ordered pain med per pt: Yes
preference::
Protocol:: Medication orders for pain may be administered in a
manner that supports deferring to patient preference
when the pt is:
- Requesting an ordered lesser potent pain medication.
Least to most potent pain medications are defined
as: acetaminophen < NSAID < tramadol < opioids
(morphine, oxycodone, hydromorphone).
- Requesting a lesser dose of the same medication IF
ORDERED.
- Requesting a less intrusive route of administration
if both routes are prescribed by the provider (PO <
IV).
06/14/25 01:03
Code Status As Directed
Resuscitation Status: Full Code
06/14/25 02:13
Orthostatic Vital Signs DAILY
Orthostatic VS Frequency: Now
Comment: then every four hours for twenty-four hours
06/14/25 02:13
Consult Notification Routine
Specialty to Notify: Gastroenterology
GASTROINTESTINAL CONSULT Routine
Consulting Provider: Kika Figueroa
Was physician already notified: No
Reason for consult: upper gi bleed
Activity As Directed
Activity Level: With Assistance
INT (Intravenous Needle Therapy) As Directed
Comment: Place 2 IV catheters of the largest bore possible until stable
Sequential Compression Device [Pneumatic Compression Sleeves] As Directed
Type: Knee high
Vital Signs As Directed
Frequency: Per unit guidelines
DX Deep Vein Thrombosis Video Routine
06/14/25 Breakfast
Clear Liquid
At Your Request: Full Participation
Does patient need a safe tray?: No
Basic Metabolic Panel IN AM
Complete Blood Count/No Diff IN AM
06/14/25 08:00
Donepezil HCl [Aricept] 10 mg PO DAILY
Hydrocortisone [Cortef] 30 mg PO DAILY
Pantoprazole [Protonix IV] 40 mg IV BID
Sertraline HCl [Zoloft] 50 mg PO DAILY
06/14/25 14:00
H&H Q8H
06/14/25 22:00
Hydrocortisone [Cortef] 10 mg PO HS
06/16/25 11:00
DC Protocol for Telemetry ONCE
Abnormal Lab Results
06/13/25 06/13/25
16:37 17:02
RBC 3.43 L 10^6/uL
(4.70-6.10)
Hgb 10.0 L g/dL
(13.0-18.0)
Hct 30.4 L %
(39.0-52.0)
MCHC 32.9 L g/dL
(33.0-37.0)
Eosinophils % 8.0 H %
(0-6)
PT 15.5 H Sec
(11.4-14.6)
APTT 41.1 H Sec
(23.4-35.0)
Creatinine 0.6 L mg/dL
(0.7-1.3)
AST 16 L U/L
(17-59)
POC Glucose 140 H mg/dl
(70-99)
06/13/25 16:37
06/13/25 16:37
Vital Signs
Initial and Last Documented VS:
Initial Vital Signs
BP
125/96
06/13/25 16:26
Last Documented Vital Signs
Temp Pulse Resp BP Pulse Ox
37.5 C 67 17 95/52 96
06/14/25 00:10 06/14/25 03:00 06/14/25 03:00 06/14/25 03:00 06/14/25 03:00
<Jose Elias Kruger MD - Last Filed: 06/14/25 03:07>
Orders/Labs/Results
Orders:
Orders
06/13/25 16:34
Electrocardiogram (*1) Urgent
Reason for Study: Bradycardia / Tachycardia
06/13/25 16:35
EKG- Treatment ONCE
06/13/25 16:37
Complete Blood Count/With Diff Urgent
Comprehensive Metabolic Panel Urgent
PTT Urgent
Prothrombin Time Urgent
06/13/25 16:45
CT Head W/o Iv Contrast Urgent
Comment:
Reason For Exam: unwitnessed fall
Cervical Spine wo Contrast CT [CT Cervical Spine W/o Iv Contr] Urgent
Comment:
Reason For Exam: Unwitnessed fall
06/13/25 17:09
Lorazepam [Ativan] 1 mg IV NOW STA
06/13/25 17:55
Ankle, left 3 view CR [CR Ankle - Left Min 3 Views ] Urgent
Comment:
Reason For Exam: fall
06/13/25 19:36
Quetiapine Fumarate [Seroquel] 75 mg PO NOW STA
06/13/25 19:38
Midazolam HCl [Versed] 2 mg IM NOW STA
06/13/25 20:14
Hydrocortisone [Cortef] 5 mg PO NOW STA
06/13/25 22:45
Propofol [Diprivan] 20 ml .ROUTE .STK-MED
06/14/25 00:11
Pantoprazole [Protonix IV] 80 mg IV NOW STA
06/14/25 00:23
Urinalysis Reflex To Culture Urgent
Date Specimen was Collected: 06/14/25
Time Specimen was Collected: 00:18
06/14/25 00:42
Type+Screen Urgent
06/14/25 01:02
Admit/Transfer Patient As Directed
Co-Sign Provider:
Level of Care: Inpatient admission
Assign to:: Telemetry
Physician / Group: Kulwant
Diagnosis: GI bleed
Reason for Telemetry: Other
Other Reason for Telemetry: gi bleed
Date to Stop Telemetry: 06/16/25
Time to Stop Telemetry: 11:00
Reason for Hospitalization: GI bleed
Expected length of stay greater than two midnights?: Yes
ELOS- Estimated Length of Stay in days: 2
I certify the patient meets the requirements for IP care: Yes
PRN Pain Medication Management As Directed
May give lesser potent ordered pain med per pt: Yes
preference::
Protocol:: Medication orders for pain may be administered in a
manner that supports deferring to patient preference
when the pt is:
- Requesting an ordered lesser potent pain medication.
Least to most potent pain medications are defined
as: acetaminophen < NSAID < tramadol < opioids
(morphine, oxycodone, hydromorphone).
- Requesting a lesser dose of the same medication IF
ORDERED.
- Requesting a less intrusive route of administration
if both routes are prescribed by the provider (PO <
IV).
06/14/25 01:03
Code Status As Directed
Resuscitation Status: Full Code
06/14/25 02:13
Orthostatic Vital Signs DAILY
Orthostatic VS Frequency: Now
Comment: then every four hours for twenty-four hours
06/14/25 02:13
Consult Notification Routine
Specialty to Notify: Gastroenterology
GASTROINTESTINAL CONSULT Routine
Consulting Provider: Kika Figueroa
Was physician already notified: No
Reason for consult: upper gi bleed
Activity As Directed
Activity Level: With Assistance
INT (Intravenous Needle Therapy) As Directed
Comment: Place 2 IV catheters of the largest bore possible until stable
Sequential Compression Device [Pneumatic Compression Sleeves] As Directed
Type: Knee high
Vital Signs As Directed
Frequency: Per unit guidelines
DX Deep Vein Thrombosis Video Routine
06/14/25 Breakfast
Clear Liquid
At Your Request: Full Participation
Does patient need a safe tray?: No
Basic Metabolic Panel IN AM
Complete Blood Count/No Diff IN AM
06/14/25 08:00
Donepezil HCl [Aricept] 10 mg PO DAILY
Hydrocortisone [Cortef] 30 mg PO DAILY
Pantoprazole [Protonix IV] 40 mg IV BID
Sertraline HCl [Zoloft] 50 mg PO DAILY
06/14/25 14:00
H&H Q8H
06/14/25 22:00
Hydrocortisone [Cortef] 10 mg PO HS
06/16/25 11:00
DC Protocol for Telemetry ONCE
Abnormal Lab Results
06/13/25 06/13/25
16:37 17:02
RBC 3.43 L 10^6/uL
(4.70-6.10)
Hgb 10.0 L g/dL
(13.0-18.0)
Hct 30.4 L %
(39.0-52.0)
MCHC 32.9 L g/dL
(33.0-37.0)
Eosinophils % 8.0 H %
(0-6)
PT 15.5 H Sec
(11.4-14.6)
APTT 41.1 H Sec
(23.4-35.0)
Creatinine 0.6 L mg/dL
(0.7-1.3)
AST 16 L U/L
(17-59)
POC Glucose 140 H mg/dl
(70-99)
06/13/25 16:37
06/13/25 16:37
Vital Signs
Initial and Last Documented VS:
Initial Vital Signs
BP
125/96
06/13/25 16:26
Last Documented Vital Signs
Temp Pulse Resp BP Pulse Ox
37.5 C 67 17 95/52 96
06/14/25 00:10 06/14/25 03:00 06/14/25 03:00 06/14/25 03:00 06/14/25 03:00
Procedures
<Jose Elias Kruger MD - Last Filed: 06/14/25 03:07>
Moderate Sedation
ASA Risk Score: Class IV
Chart and allergies reviewed: Yes
Consent for anesthesia obtained: Yes
Time out completed (validating right patient & procedure): Yes
Moderate Sedation Start Time(when first medication is given): 23:15
History of difficult intubation: No
Airway free of obstruction: Yes
Patient has a gag reflex: Yes
Patient is able to open mouth: Yes
Patient has no dentures: Yes
Patient has no loose teeth: Yes
Medication administered by Provider during Moderate Sedation: IV Propofol (mg)
Total dose administered: 160
Time drug administered: 23:15
Moderate Sedation Procedure End Time: 23:46
<Jose Elias Kruger MD - Last Filed: 06/14/25 03:07>
MDM/Problems Addressed
MDM/Problems Addressed:
UPDATE (Jose Elias Kruger MD)
I have seen and evaluated the patient after signout and reviewed all labs and imaging.
Focused HPI: This is a 65-year-old male with medical history significant for dementia with agitation/behavioral issues associated, GERD, lung cancer currently in remission, chronic adrenal insufficiency on chronic steroids who presents to the
emergency room today from [facility] in [place]; he presents via EMS but is accompanied by his who provides most of the history�patient cannot meaningfully participate due to his baseline mentation. He presents today for
evaluation of change in mental status as well as dark stools. His says that he has been more agitated recently and she believes that this contributed to a fall that occurred on Wednesday. This was an unwitnessed fall but patient was noted to
have hematoma on the right forehead. Initially he was not evaluated in the emergency room but he had an assessment today by nursing staff and they felt that his pupillary reaction was sluggish and given recent fall recommended transport to the
emergency room for assessment. Staff also noted that patient has been having dark 'benitez stools' for the past few days. He is not on any blood thinners. He does however take chronic steroids and has history of GERD.
Physical exam: Patient is awake, occasionally agitated but redirectable. He is normotensive, heart rate in the 70s, respiratory rate 20-24 with normal pulse ox, no fever. He has a right forehead hematoma. Some bruising to the left ankle. He has
no other signs of significant trauma. He has no cardiac rubs gallops or murmurs and his lungs sound generally clear. His abdomen is soft not apparently tender. On rectal examination today he has black stool which is Hemoccult positive.
Medical Decision Makin-year-old male presents to the emergency room for evaluation of recent agitation and fall with head strike as well as recent black stools.
# Fall with head strike
Left ankle bruising and right forehead hematoma, no other signs of serious injury. He was sent for an ankle x-ray which showed no acute abnormalities. Plan was to obtain a CT of the head and cervical spine but this has unfortunately been very
difficult due to his agitation. He initially received Ativan to try and facilitate testing but this was not successful. He then received Seroquel and Versed but again this was unsuccessful. I had an extended conversation with the about the
utility of even obtaining CT. I asked her frankly whether she would act on any traumatic findings if they were detected on CT. She is very unsure about how aggressive she would be with her care if there was an injury but she is quite adamant that
she wishes to obtain the scan. We talked about options for facilitating scan at this point after he failed multiple medications for sedation and ultimately we decided that in order to facilitate the rest of his testing today we would proceed with a
moderate sedation to obtain CT scan�with 's permission we also obtained rectal exam under sedation and straight catheterization for urine to workup his recent agitation. CT was successfully obtained under sedation with me at bedside
continuously. No acute abnormalities noted.
# GI bleed
Dark stools reported for the past few days. No large-volume bowel movements here. He is hemodynamically stable (he had transient hypotension with sedation but this quickly resolved). He did have a 2 point drop in his hemoglobin compared to labs
from January. He is Hemoccult positive today takes chronic steroids likely this is upper GI bleeding. Will start IV PPI. I discussed with regarding treatment plan she prefers to keep him in the hospital to trend hemoglobin and monitor for
additional bleeding. Case was discussed with hospitalist for admission.
<Mahogany Harry MD - Last Filed: 06/13/25 20:08>
*Pulse Oximetry
Oxygen Mode of Delivery: Room air
<Jose Elias Kruger MD - Last Filed: 06/14/25 03:07>
*Pulse Oximetry
Patient hypoxic: yes (99%)
*Critical Care Note
Total Time (30-74mins, 75-104mins- exclusive of procedures): Not Applicable
<Jose Elias Kruger MD - Last Filed: 06/14/25 03:07>
Patient Management
Discussion with other providers: Hospitalist (Discussed with hospitalist)
Escalation/DeEscalation of care consider admission/obs:
Admission indicated
<Mahogany Harry MD - Last Filed: 06/13/25 20:08>
Update Note
Update Note:
Patient presents to the Emergency Department with ____abnormally colored stools, reportedly abnormal response of pupils
Number and Complexity of Problems Addressed at the Encounter
� Chronic conditions affecting care:
� Acute Exacerbation and/or Progression of Chronic Illness:
� Differential Diagnosis includes: But not limited to GI bleed, intracranial bleed, CVA, etc.
Amount and/or Complexity of Data to be Reviewed and Analyzed
� I performed an independent evaluation of and my interpretation is:
EKG: Read by me, normal sinus rhythm, normal rate, normal axis, no acute ischemia
CT:
Xrays: read by me ankle nad
Laboratory Studies: Generally unremarkable, mild anemia noted. This was discussed with particularly in the context of reported 'dark stool', and considering the intensity of workup here etc. she elects to follow hemoglobin
as an outpatient. No active bleeding here. Rectal exam not performed given patient's agitation.
Other:
� Review of other/old records reveals:
� Clinical information was obtained by an independent historian:
� Prescriptions/Medications Considered but not given:
� Further testing considered but not performed:
Risk of Complications and/or Morbidity or Mortality of Patient Management
� Social determinants of health affecting care:
� Discussion with other providers (PCP, Hospitalists, Consultants, etc):
� Escalation of care including admission/observation vs risk of discharge considered: now at bedside she states that patient has been calm increasingly agitated over the last few weeks. She states that she has not been able
to visit as much as usual given that her father just and her daughter has been away visiting, unclear in her opinion if this is contributing to his increasing agitation. We will continue with workup here, medicate for agitation, and reassess.
Of note, patient noted to have bruising and swelling of left ankle which may be related to recent fall. Will image here.
7:40 PM patient agitation is improved. However, when he went over to CAT scan he again became very agitated and study was not able to be performed. He is now back in his room. Long discussion with his . I will give him IM Versed as well as
his nighttime hydrocortisone and Seroquel, we will efforts to rescan him. Assuming scan unremarkable for new illness, patient will be transferred back to his facility, is comfortable and agreeable to this plan. Patient does not pose a danger
to himself or others at this time.
ED Attending Note
<Mahogany Harry MD - Last Filed: 06/13/25 20:08>
-
Portions of this chart may have been created with voice recognition software.� Occasional wrong word or��sound alike� substitutions may have occurred due to the inherent limitations of voice recognition software.
Discharge Plan
Departure
Patient Disposition: Admit
Date of Disposition: 06/14/25
Time of Disposition: 00:09
Admit to doctor: Kulwant
Presentation/result/management discussed w/ accepting MD/DO: Hospitalist
Condition: Fair
Discharge Problem:
Traumatic hematoma of forehead, GI bleed, Acute blood loss anemia
Interventions
Interventions:
*Risk Screen - Suicide Last Done: 06/13/25 17:00
*General Assessment Last Done: 06/13/25 16:37
*Neglect/Abuse Screening Last Done: 06/13/25 16:39
*ED COVID-19 Vaccine History Last Done: 06/13/25 16:39
ED- Neurological Assessment Last Done: 06/13/25 17:18
ED- Cardiac Assessment Last Done: 06/13/25 17:18
ED Swallowing Screen Last Done: 06/13/25 20:15
[2025-06-13 17:08] LABS: INR 1.17; PT 15.5 Sec (11.4-14.6)
[2025-06-13 17:09] LABS: APTT 41.1 Sec (23.4-35.0)
[2025-06-13] MEDS: ATIVAN 1 MG IV (17:13)
[2025-06-13 17:17] LABS: ALT (SGPT) < 10 U/L (0-50); AST (SGOT) 16 U/L (17-59); Albumin 3.8 g/dl (3.5-5.0); Alkaline Phosphatase 47 U/L (38-126); Blood Urea Nitrogen 14 mg/dl (9-20); Calcium 8.8 mg/dl (8.4-10.2); Carbon Dioxide 26 mmol/L (22-30); Chloride 105 mmol/L (98-107); Glucose 88 mg/dl (70-99); Potassium 3.7 mmol/L (3.5-5.1); Sodium 138 mmol/L (135-145); Total Protein 6.9 g/dl (6.3-8.2); eGFR > 60.00
[2025-06-13] MEDS: CORTEF 5 MG PO (20:29)
[2025-06-13] MEDS: SEROQUEL 75 MG PO (20:29)
[2025-06-13] MEDS: VERSED 2 MG IM (21:10)
[2025-06-14] VITALS (32 sets, daily range): BP systolic 52–133; BP diastolic 30–72; BMI 26.2; BMI 25.0
[2025-06-14] MEDS: PROTONIX IV 80 MG IV (00:20)
--- NOTE | 2025-06-14 00:46 | HPS.HSE ---
Addendum entered and electronically signed by Bowen Blum MD 06/14/25 07:14:
Spoke with patient family Ms Key this morning. She will like to review goals of care before any procedures. I told her that she will be contacted before any procedure is performed. She will also like to discuss with palliative care which may be
consulted after discussing with team in am. Code status was still full code but may be changed after discussion.
Original Note:
Family Physician
-
Family Physician: NICCI MURCIA NP
Chief Complaint
-
Change in mental status
History of Present Illness
This is a 65-year-old male with past medical history significant for progressive dementia, history of stage IV lung cancer status post chemo, adrenal insufficiency, presenting to the emergency department with complaint of altered mental status.
He had a fall on Wednesday and he has a hematoma noted on the right side of his head. Staff reported that he had slow pupillary constriction and benitez colored stool. However per EMS and staff patient is currently at baseline. He does not appear to
be in any discomfort but is somewhat agitated.
There is some concern for GI bleed as patient has dark heme positive stool in the ED. And his hemoglobin has gone down to 10 from a baseline of around 12 in December. He is not on any thinners. He has no history of GI bleed, no recent colonoscopy
or EGD.
In the emergency department his blood pressure was 108/60 (was transiently hypotensive after getting sedatives for CT scan). Pulse rate 61 oxygen saturation 98 temp of 99.5. ECG shows normal sinus rhythm at a rate of 62 and unchanged on prior. CT
of the head was negative for intracranial bleed or any other acute intracranial process. The C-spine was negative for any acute trauma.
Hemoglobin was 10, MCV was normal. Platelet was normal. INR was normal. Electrolytes BUN/creatinine were all in the normal range. UA is pending.
Medical History
Past Medical History
Past Medical History: Reports Other
Additional Past Medical History:
Adrenal insufficiency due to pembrolizumab
Primary progressive aphasia, dementia
History of non-small cell lung cancer, left upper lobe
Rheumatoid arthritis, in remission
Depression
Past Surgical History: Reports None
Social History
Tobacco: Former Smoker
Alcohol: None
Drug: None
Personal:
Living: With Family
Employment: Not Employed
Family History
Family History: Not pertinent
Allergies / Home Medications
Allergies reflects when Allergies were last updated in [employer].
Home Medications with original date entered in [employer]
Allergy/Medication List:
Allergies
Allergy/AdvReac Type Severity Reaction Status Date / Time
indomethacin [From Indocin] Allergy Unknown Unknown Verified 12/12/24 13:49
Home Medications
acetaminophen 325 mg tablet 650 mg (2 x 325 mg) PO Q6HPRN PRN mild pain/ fever>100.5F 07/20/20
magnesium 250 mg tablet 250 mg PO QPM Electrolyte Repletion 12/15/20
multivitamin (One Daily Essential tablet) 1 ea PO DAILY Supplement 12/15/20
omeprazole 20 mg tablet,delayed release 20 mg PO DAILY Gastrointestinal issue 12/15/20
hydrocortisone 10 mg tablet 10 mg PO HS Anti-inflammatory 12/16/20
hydrocortisone 20 mg tablet 15 mg PO DAILY Anti-inflammatory 12/16/20
cholecalciferol (vitamin D3) 50 mcg (2,000 unit) capsule (Vitamin D3) 50 mcg PO DAILY 09/07/22
aspirin 81 mg chewable tablet 81 mg PO DAILY 05/01/24
calcium citrate 400 mg PO DAILY 05/01/24
donepezil 10 mg tablet 10 mg PO DAILY 05/01/24
glucosamine sulf dipot chlr,msm,chond 550 mg-C 30 mg-sabina 1 mg capsule (Glucosamine Chondroitin) 1 cap PO DAILY 05/01/24
sertraline 100 mg tablet 100 mg PO DAILY 05/01/24
cetirizine 10 mg tablet (Zyrtec) 10 mg PO HS 07/21/24
diazepam 5 mg tablet (Valium) 5 mg PO BID PRN muscle spasm #8 tabs 08/31/24
methylprednisolone 4 mg tablets in a dose pack (Medrol (Leo)) 4 mg PO DIRECTED #21 ea 08/31/24
Review of Systems
-
Unable to obtain full review of systems at this time due to: Dementia
Physical Exam
Vital Signs
Vital Signs
Temp Pulse Resp BP Pulse Ox
99.5 F 61 17 108/60 99
06/14/25 00:10 06/14/25 00:20 06/14/25 00:20 06/14/25 00:20 06/14/25 00:20
Physical Exam
General: Other (Sleepy and sedated after propofol bolus for CT scan)
HEENT: NormoCephalic, Anicteric and Moist mucous membranes; No Oxygen
Respiratory: Clear
Cardiac: S1/S2 and Regular Rhythm
Breast: Deferred by me
GI: Soft, Non Tender and Non Distended
Rectal: Brown and Hem Positive
Genito-urinary: Deferred by me
Musculoskeletal: No Clubbing, No Cyanosis and No Edema
Skin: Warm and Dry; No Jaundice
Neuro: Nonfocal/grossly intact and Sedated
Hematologic/Lymphatic: No Lymphadenopathy
Psych: Calm
Laboratory Results
-
06/13/25 16:37
06/13/25 16:37
Laboratory Results
PT 15.5 Sec (11.4-14.6) H 06/13/25 16:37
INR 1.17 06/13/25 16:37
APTT 41.1 Sec (23.4-35.0) H 06/13/25 16:37
Total Bilirubin 0.5 mg/dl (0.2-1.3) 06/13/25 16:37
AST 16 U/L (17-59) L 06/13/25 16:37
ALT < 10 U/L (0-50) 06/13/25 16:37
Alkaline Phosphatase 47 U/L (38-126) 06/13/25 16:37
Impression/Plan
-
IMPRESSION:
This is a 65-year-old with progressive dementia, renal insufficiency, and known chronic anemia presenting to the emergency department following a fall and head strike few days ago and development of alteration in mental status. Patient is
apparently back to baseline per EMS and staff. However family is sleepy secondary to propofol after being agitated isatu. The CT of the head was negative. C-spine was negative. Is hemoglobin was 10 down from 12 a few months ago. MCV was
unremarkable. Has heme positive dark stools in the ED and was read to have dark benitez colored stool at the skilled nursing.
PLAN:
Melena - suspected melena with heme positive dark stools, benitez colored stools at skilled nursing, drop in hemoglobin. Patient unable to provide much history. HD stable, hemoglobin 10
-Admit to telemetry
-IV PPI twice daily
-Started with clear liquid diet for now
- type and screen, H&H q 8 for now
- holding asa 81
-Increase hydrocortisone steroids to double the regular dose
-Orthostatic vital signs in a.m.
-GI consultation
AMS - Possible 2/2 fall.
- U/A pending
- monitoring vitals and H/H as above
DVT PPX - SCD
Code status - Full code
[2025-06-14 02:33] LABS: Urine Character Clear (Clear)
[2025-06-14] MEDS: SOLU-CORTEF 50 MG IV (03:33)
[2025-06-14] MEDS: NSS 500 IV (03:33)
[2025-06-14 05:38] LABS: Hematocrit 27.8 % (39.0-52.0); Hemoglobin 9.4 g/dL (13.0-18.0); Mean Corp Hgb Conc. 33.8 g/dL (33.0-37.0); Mean Corpuscular Volume 86.9 fL (80.0-94.0); Platelet Count 179 10^3/uL (130-400); Red Cell Dist. Width 12.8 % (11.5-14.5)
[2025-06-14 05:56] LABS: Blood Urea Nitrogen 10 mg/dl (9-20); Calcium 8.1 mg/dl (8.4-10.2); Carbon Dioxide 24 mmol/L (22-30); Chloride 111 mmol/L (98-107); Estimated Creatinine Clearance > 125 ml/min; Glucose 99 mg/dl (70-99); Potassium 3.9 mmol/L (3.5-5.1); Sodium 141 mmol/L (135-145); eGFR > 60.00
[2025-06-14] MEDS: ZOFRAN 4 MG IV (07:46)
[2025-06-14] MEDS: PROTONIX IV 40 MG IV ×2 (09:14→20:48)
[2025-06-14] MEDS: NSS (PRESERVATIVE FREE) 10 ML IV ×2 (09:14→20:49)
[2025-06-14] MEDS: CORTEF PO ×2 (09:14→09:17)
[2025-06-14] MEDS: ARICEPT PO ×2 (09:14→09:16)
[2025-06-14] MEDS: ZOLOFT PO ×2 (09:14→09:17)
[2025-06-14] MEDS: ARICEPT 10 MG PO (09:28)
[2025-06-14] MEDS: CORTEF 30 MG PO (09:29)
[2025-06-14] MEDS: ZOLOFT 50 MG PO (09:30)
--- NOTE | 2025-06-14 11:03 | W.PN.UPDATE ---
Update Note
Progress Note Update
Seen and admitted by Dr. Blum this morning.
Patient with progressive dementia and expressive aphasia over the last 3 years currently residing in a dementia unit was sent in because of change in mental status after his fall and also benitez colored stools.
Patient is alert but not oriented. Not able to recognize family members speaking incomprehensible words no agitation. Family sometimes finds him to be more confused with change in environment. They seem to be at his baseline. No hallucinations
recently. No agitations recently. Evaluation so far including CT head, BMP, UA, WBC does not suggest any obvious acute medical conditions. Afebrile. Nontoxic. I suspect some of his variation in condition may be environmental. I would not
pursue further testing in that regard.
With regards to clinical stool it was heme positive here and his hemoglobin is lower than his baseline. Patient never had any prior GI bleeds nor any prior endoscopy eval including screening colonoscopy. He had a lot of radiation to the chest for
his lung cancer which is in remission for at least couple of years based on the PET scan data in the [facility]. He is not currently on any treatments for lung cancer. Family states that his doctors told him he is in remission.
After further discussion with the family they are like to get a GI input and also may consider endoscopy eval. GI made aware.
--- NOTE | 2025-06-14 11:42 | CM ---
Patient seen at bedside with María
IA obtained by
IMM explained & signed. gave to community engagement coordinator to scan
Dx: change in mental status post fall
PMH: progressive dementia and expressive aphasia over the last 3 years currently residing at [facility]
Patient resides at [facility]
PLOF: Independent
DME: elevated toilet seat
Had VN in 2020, [place] in past
PCP: Rosalee Olson
Pharmacy: [facility]
PLAN: anticipate return to [facility] when stable, CM to continue to follow
--- NOTE | 2025-06-14 13:39 | CON.GI ---
Addendum entered and electronically signed by Kika Figueroa MD 06/14/25 14:45:
I saw and examined the patient.
The BOTTOM STAINER or PA's note was reviewed and I agree with the note.
Comment: 65-year-old male with history of non-small cell lung cancer status post chemo/radiation/immunotherapy with Keytruda in 2019, history of adrenal insufficiency, primary progressive aphasia and dementia who currently resides in dementia unit
presenting from the dementia unit with dark-colored stool. Patient does not give any history, María was able to give history. No GI symptoms prior to admission, no previous history of GI bleeding, never had upper endoscopy or colonoscopy.
In the emergency room, hemoglobin was noted to be 10, it was 12.1 in January 2025, normocytic anemia, hemodynamically stable. Reviewing labs, patient is on oral iron and as per patient's , this for started sometime after February 2025. No NSAID
use.
On admission, patient did have cervical spine CT that did show very small pneumothorax versus below with thickened wall along left apex.
- Melena without overt GI bleeding and hemodynamically stable
No previous history of GI bleeding or endoscopy evaluation
Continue PPI IV twice daily
Monitor H&H and transfuse as needed
Add iron studies as well but with oral iron supplementation, might be in normal range
Will need upper endoscopy to evaluate, is agreeable. Given small possible pneumothorax on chest CT, will follow-up with chest x-ray to rule out pneumothorax prior to scheduling the endoscopy.
Consent to be taken from María-[phone]
Will follow
Original Note:
Consultation
-
Date/Time Consultation Requested: 06/14/25
Date/Time Consultation Performed: 06/14/25
Requesting Provider: Dr. Carpio
Performing Provider: Dr. Figueroa/SUYAPA Hinds
Reason for Consultation: Anemia, OB positive stool
Medical History
Chief Complaint / HPI
Chief Complaint: Dark stool
History of Present Illness:
65-year-old male with past medical history of non-small cell lung cancer left upper lobe status post chemo (Keytruda) and radiation (completed 2019), adrenal insufficiency (on chronic hydrocortisone) due to pembrolizumab, primary progressive
aphasia, dementia, rheumatoid arthritis, depression who currently lives in a dementia unit with recent fall with hematoma to the right side of his forehead who presents to the emergency room with dark benitez colored stools. Asked to evaluate for OB
positive stools with anemia. Patient also had episodes of vomiting while here. The patient has never had endoscopy or colonoscopy before. No family history of GI malignancy. Information obtained from his María as patient is not a good
historian. The patient does admit that he had nausea. She currently is on ferrous sulfate 325 mg daily. The does state that he would not be on any NSAIDs if he was on anything for pain control it would be Tylenol. She states there was a
time that he was on omeprazole while he was on chemotherapy. Other than that he is not on any PPI therapy. The patient's baseline hemoglobin was around 12 in December and then has gone down to approximately 10 recently. Currently it is 9.4 this
morning. BUN is within normal limits. The patient did tolerate a couple bites of clear liquids this morning.
Past Medical History
Past Medical History: Other (Non-small cell lung cancer left upper lobe status post Keytruda and radiation (2019), adrenal insufficiency, primary progressive aphasia, dementia, rheumatoid arthritis, depression)
Past Surgical History: None
Social History
Tobacco: Former Smoker
Alcohol: None
Drug: None
Personal:
Living: Retirement
Employment: Retired
Family History
Family History: Other (Family history of gastrointestinal malignancy or IBD)
Allergies / Home Medications
Allergy/AdvReac Type Severity Reaction Status Date / Time
indomethacin (From Indocin) Allergy Unknown Verified 06/13/25 20:14
�Medication �Instructions �Recorded
hydrocortisone 10 mg tablet 5 mg PO HS Anti-inflammatory 12/16/20
cholecalciferol (vitamin D3) 25 25 mcg PO DAILY 06/14/25
mcg (1,000 unit) tablet (Vitamin
D3)
cyanocobalamin (vitamin B-12) 1,000 mcg PO DAILY 06/14/25
1,000 mcg tablet
donepezil 5 mg tablet 5 mg PO HS 06/14/25
ferrous sulfate 325 mg (65 mg 325 mg PO DAILY 06/14/25
iron) tablet
folic acid 400 mcg tablet 0.4 mg PO DAILY 06/14/25
hydrocortisone 5 mg tablet 15 mg PO DAILY 06/14/25
oxycodone 10 mg tablet,crush 10 mg PO Q12H 06/14/25
resistant,extended release 12 hr
(OxyContin)
quetiapine 50 mg tablet (Seroquel) 75 mg PO HS 06/14/25
sertraline 25 mg tablet 75 mg PO DAILY 06/14/25
thiamine HCl (vitamin B1) 100 mg 100 mg PO DAILY 06/14/25
tablet (Vitamin B-1)
tramadol 25 mg tablet 25 mg PO BID 06/14/25
Review of Systems
-
All other systems: A 12 pt ROS was Negative except as stated above in HPI
Vital Signs
Temp Pulse Resp BP Pulse Ox
97.6 F 64 18 96/44 99
06/14/25 13:37 06/14/25 13:37 06/14/25 13:37 06/14/25 13:37 06/14/25 13:37
Physical Exam
Exam
General: Comfortable
HEENT: Other (Right forehead hematoma (healing stage yellow))
Respiratory: Clear (Anterior)
Cardiac: Regular Rhythm
GI: Soft, Non Tender, Non Distended and Normal Bowel Sounds
Rectal: Hem Positive (Brown OB positive stool)
Musculoskeletal: No Edema
Skin: Warm and Dry
Neuro: Awake, Alert and Oriented (To person only)
Psych: Calm
Results
WBC 7.5 10^3/uL (4.8-10.8) 06/14/25 05:18
Hgb 9.4 g/dL (13.0-18.0) L 06/14/25 05:18
Hct 27.8 % (39.0-52.0) L 06/14/25 05:18
MCV 86.9 fL (80.0-94.0) 06/14/25 05:18
Plt Count 179 10^3/uL (130-400) D 06/14/25 05:18
Absolute Neuts (auto) 3.6 10^3/uL (1.4-6.5) 06/13/25 16:37
PT 15.5 Sec (11.4-14.6) H 06/13/25 16:37
INR 1.17 06/13/25 16:37
APTT 41.1 Sec (23.4-35.0) H 06/13/25 16:37
Sodium 141 mmol/L (135-145) 06/14/25 05:18
Potassium 3.9 mmol/L (3.5-5.1) 06/14/25 05:18
Chloride 111 mmol/L (98-107) H 06/14/25 05:18
Carbon Dioxide 24 mmol/L (22-30) 06/14/25 05:18
BUN 10 mg/dl (9-20) 06/14/25 05:18
Creatinine 0.6 mg/dL (0.7-1.3) L 06/14/25 05:18
Calcium 8.1 mg/dl (8.4-10.2) L 06/14/25 05:18
Total Bilirubin 0.5 mg/dl (0.2-1.3) 06/13/25 16:37
AST 16 U/L (17-59) L 06/13/25 16:37
ALT < 10 U/L (0-50) 06/13/25 16:37
Alkaline Phosphatase 47 U/L (38-126) 06/13/25 16:37
Diagnostic Image Results:
Cervical spine CT without contrast:
IMPRESSION:
1. No acute fracture or malalignment. Multilevel advanced degenerative changes as described.
2. As above, cannot exclude very small left-sided pneumothorax. Consider follow-up chest radiographs.
CT head:
No acute intracranial abnormality.
Left ankle x-ray:
IMPRESSION:
No acute osseous abnormality.
Mild soft tissue swelling along the ankle.
Prior GI Procedures:
EGD: Never
Colonoscopy: Never
Assessment / Plan
-
65-year-old male with past medical history of non-small cell lung cancer left upper lobe status post chemo (Keytruda) and radiation (completed 2019), adrenal insufficiency (on chronic hydrocortisone) due to pembrolizumab, primary progressive
aphasia, dementia, rheumatoid arthritis, depression who currently lives in a dementia unit with recent fall with hematoma to the right side of his forehead who presents to the emergency room with dark benitez colored stools. Asked to evaluate for OB
positive stools with anemia. Patient also had episodes of vomiting while here. Patient with decrease in hemoglobin from his baseline. Currently 9.4 down from 10 on admission. Baseline around 12. The patient is on oral iron as an outpatient. He
does have a history of radiation to the left side of his chest. Is on chronic hydrocortisone. Not on PPI therapy. Did have nausea and vomiting. Recent fall striking his head. CT of the neck Cannot exclude very small left-sided pneumothorax.
Will obtain chest x-ray.
Impression:
Anemia, OB positive stool
Vomiting
Recent fall, right forehead hematoma
History of non-small cell lung cancer with left upper lobe radiation (2019)
Adrenal insufficiency on chronic hydrocortisone
Primary progressive aphasia/dementia
Plan:
- Pantoprazole 40 mg IV twice daily
-Obtain chest x-ray today, CTA neck cannot exclude very small left-sided pneumothorax. Discussed with internal medicine attending.
- CBC, BMP in a.m.
-Patient currently on sips of clear liquids.
-EGD tomorrow, will be the 1 to obtain consent from María [phone]
-Further recommendations to be forthcoming
-
-
Thank you for consultation and allowing me to participate in the patient's care. Please call the python django developer GI physician during the after hours with any questions or concerns.
[2025-06-14] MEDS: RISPERDAL 0.25 MG PO (14:03)
[2025-06-14 14:28] LABS: Hematocrit 30.0 % (39.0-52.0); Hemoglobin 10.1 g/dL (13.0-18.0)
[2025-06-14] MEDS: NSS 1000 IV (15:52)
[2025-06-14] MEDS: SEROQUEL 75 MG PO (20:48)
[2025-06-14] MEDS: DELTASONE 5 MG PO (20:48)
[2025-06-14] MEDS: ULTRAM 25 MG PO (20:48)
[2025-06-15] VITALS (12 sets, daily range): BP systolic 102–130; BP diastolic 56–99
--- NOTE | 2025-06-15 03:38 | VATNOTE ---
PDT WITH STABLE H/H AND NO CURRENT NEED FOR ADDITIONAL IV ACCESS.PT RESTLESS,, CONFUSED AND REMOVING IV SITES , TELE MONITOR AND ATTEMPTING TO GET OOB. WILL NOT INSERT 2ND IV SITE AT THIS TIME. PCN AWARE
[2025-06-15 06:08] LABS: Hematocrit 29.3 % (39.0-52.0); Hemoglobin 9.6 g/dL (13.0-18.0); Mean Corp Hgb Conc. 32.8 g/dL (33.0-37.0); Mean Corpuscular Volume 87.7 fL (80.0-94.0); Nucleated Red Blood Cells % 0 % (-); Platelet Count 198 10^3/uL (130-400); Red Cell Dist. Width 12.5 % (11.5-14.5)
[2025-06-15 06:36] LABS: Blood Urea Nitrogen 4 mg/dl (9-20); Calcium 8.6 mg/dl (8.4-10.2); Carbon Dioxide 27 mmol/L (22-30); Chloride 109 mmol/L (98-107); Estimated Creatinine Clearance > 125 ml/min; Glucose 98 mg/dl (70-99); Iron 88 ug/dl (49-181); Potassium 3.5 mmol/L (3.5-5.1); Sodium 142 mmol/L (135-145); eGFR > 60.00
[2025-06-15 06:45] LABS: Total Iron Binding Capacity 191 ug/dl (261-462)
[2025-06-15 07:11] LABS: Ferritin 158.0 ng/ml (17.9-464.0)
[2025-06-15] MEDS: PROTONIX IV 40 MG IV (08:14)
[2025-06-15] MEDS: ARICEPT 10 MG PO (08:14)
[2025-06-15] MEDS: ULTRAM 25 MG PO ×2 (08:14→21:23)
[2025-06-15] MEDS: VITAMIN B-12 1000 MCG PO (08:14)
[2025-06-15] MEDS: ZOLOFT 75 MG PO (08:14)
[2025-06-15] MEDS: NSS (PRESERVATIVE FREE) 10 ML IV (08:15)
[2025-06-15] MEDS: FOLVITE 0.5 MG PO (08:16)
[2025-06-15] MEDS: VITAMIN B1 100 MG PO (08:16)
[2025-06-15] MEDS: VITAMIN D3 (cholecalciferol) 25 MCG PO (08:16)
[2025-06-15] MEDS: CORTEF 15 MG PO (08:17)
[2025-06-15] MEDS: NSS 1000 IV (08:25)
--- NOTE | 2025-06-15 14:07 | W.PN.HOSP.TC ---
Today's Communication/Plan
-
EGD today
Assessment / Plan
Assessment / Plan
This is a 65-year-old with progressive dementia, renal insufficiency, and known chronic anemia presenting to the emergency department following a fall and head strike few days ago and development of alteration in mental status. Patient is
apparently back to baseline per EMS and staff. However family is sleepy secondary to propofol after being agitated isatu. The CT of the head was negative. C-spine was negative. Is hemoglobin was 10 down from 12 a few months ago. MCV was
unremarkable. Has heme positive dark stools in the ED and was read to have dark benitez colored stool at the half-way.
PLAN:
Melena - suspected melena with heme positive dark stools, benitez colored stools at half-way, drop in hemoglobin. Patient unable to provide much history. HD stable, hemoglobin 10
- Patient never had a colonoscopy. Was on PPI during his chemo for lung cancer. Currently not on PPI.
-IV PPI twice daily
- Appreciate GI input-upper GI endoscopy to
- holding asa 81
-There was a concern raised of left apical pneumothorax on the cervical CT but chest x-ray does not show any evidence of pneumothorax. Continue with EGD as planned
AMS
Patient with dementia and aphasia
CT of the head and neck with no acute intracranial abnormalities or fractures. Patient recently had a fall.
No obvious data to support metabolic encephalopathy.
Today he is pleasantly confused at baseline.
History of lung cancer status post chemo and radiation-according to family in remission
Adrenal insufficiency-continue with his replacement therapy
Discussed with at bedside
DVT PPX - SCD
Code status - Full code
Anticipated Discharge: Within 24 hours
Subjective/Interval History
-
Date of Service: June 15, 2025
Pleasantly confused. No agitation.
Difficult to communicate because of his dementia and aphasia.
Objective Data
-
Labs:
Laboratory Results
06/15/25
05:49
WBC 5.5
Hgb 9.6 L
Hct 29.3 L
Plt Count 198
Sodium 142
Potassium 3.5
Chloride 109 H
Carbon Dioxide 27
BUN 4 L
Creatinine 0.5 L
Glucose 98
Calcium 8.6
Vital Signs:
Vital Signs
Temp Pulse Resp BP Pulse Ox
98.4 F 48 16 122/75 97
06/15/25 11:45 06/15/25 12:18 06/15/25 11:45 06/15/25 11:45 06/15/25 11:45
I&O
06/14/25 06/15/25 06/16/25
06:59 06:59 06:59
Intake Total 600 / 600
Output Total 300 / 300
Balance -300 / -300 600 / 600
Physical Exam
-
General: Respiratory Distress
Respiratory: Non Labored Respirations; Negative Accessory Resp Muscle Use
Cardiac: Regular Rhythm and S1/S2; Negative Tachycardic
GI: Soft and Nontender
Neuro: Awake and Alert
Psych: Calm and Confused; Negative Agitated
Data Reviewed
-
Labs: Labs Reviewed by me
[2025-06-15] MEDS: SEROQUEL 75 MG PO (21:24)
[2025-06-15] MEDS: DELTASONE 5 MG PO (21:36)
[2025-06-15] MEDS: NSS IV (22:24)
[2025-06-16 03:15] VITALS: BP 127/70
[2025-06-16 04:48] LABS: Hematocrit 32.9 % (39.0-52.0); Hemoglobin 10.6 g/dL (13.0-18.0); Mean Corp Hgb Conc. 32.2 g/dL (33.0-37.0); Mean Corpuscular Volume 90.9 fL (80.0-94.0); Platelet Count 190 10^3/uL (130-400); Red Cell Dist. Width 12.7 % (11.5-14.5)
[2025-06-16 05:09] LABS: Blood Urea Nitrogen 7 mg/dl (9-20); Calcium 9.0 mg/dl (8.4-10.2); Carbon Dioxide 29 mmol/L (22-30); Chloride 108 mmol/L (98-107); Estimated Creatinine Clearance > 125 ml/min; Glucose 98 mg/dl (70-99); Magnesium 1.8 mg/dl (1.6-2.3); Potassium 4.2 mmol/L (3.5-5.1); Sodium 143 mmol/L (135-145); eGFR > 60.00
[2025-06-16 07:00] VITALS: BP 130/71
--- NOTE | 2025-06-16 07:39 | PTCARENOTE ---
Patient alerting sinus gerson in the 30's to 40's on awake overnight monitor. PROJECT GEOPHYSICIST notified. Labs obtained. Cards consulted added. EKG ordered - unable to obtain d/t patient becoming agitated and combative. Patient began hitting staff and becoming more
aggressive. Code sofy called and patient then placed in 4 point restraints. Patient yelling 'who are you, get the fuck out of my house, take your shit and go.' Patient continues to be agitated and having possible hallucinations. Bed alarm in
place. Plan of care ongoing.
[2025-06-16] MEDS: ULTRAM 25 MG PO ×2 (07:52→21:01)
[2025-06-16] MEDS: PROTONIX 40 MG PO (07:52)
[2025-06-16] MEDS: CORTEF 15 MG PO (07:52)
[2025-06-16] MEDS: ZOLOFT 75 MG PO (07:53)
[2025-06-16] MEDS: FOLVITE 0.5 MG PO (07:53)
[2025-06-16] MEDS: VITAMIN B1 100 MG PO (07:53)
[2025-06-16] MEDS: VITAMIN D3 (cholecalciferol) 25 MCG PO (07:53)
[2025-06-16] MEDS: ARICEPT 10 MG PO (07:55)
[2025-06-16] MEDS: VITAMIN B-12 1000 MCG PO (07:55)
--- NOTE | 2025-06-16 09:35 | PTCARENOTE ---
Pt cooperative this morning, restraints removed at 0930.
--- NOTE | 2025-06-16 09:41 | W.PN.HOSP.TC ---
Today's Communication/Plan
-
DC
Assessment / Plan
Assessment / Plan
This is a 65-year-old with progressive dementia, renal insufficiency, and known chronic anemia presenting to the emergency department following a fall and head strike few days ago and development of alteration in mental status. Patient is
apparently back to baseline per EMS and staff. However family is sleepy secondary to propofol after being agitated isatu. The CT of the head was negative. C-spine was negative. Is hemoglobin was 10 down from 12 a few months ago. MCV was
unremarkable. Has heme positive dark stools in the ED and was read to have dark benitez colored stool at the intermediate.
PLAN:
Melena - suspected melena with heme positive dark stools, benitez colored stools at intermediate, drop in hemoglobin. Patient unable to provide much history. HD stable, hemoglobin 10
- Patient never had a colonoscopy. Was on PPI during his chemo for lung cancer. Currently not on PPI.
- EGD without signs of bleeding or ulcers
- Resume asa 81
- GI discussed with plan is to hold on colonoscopy and follow H&H.
AMS
Patient with dementia and aphasia
Patient today with behavioral disturbances needing restraints.
CT of the head and neck with no acute intracranial abnormalities or fractures. Patient recently had a fall.
No obvious data to support metabolic encephalopathy.
This morning he is calm and comfortable. Will remove the restraints and follow.
Did not need any medications for agitation this morning.
Bradycardia-sinus
Not on beta-blockers. Admitting EKG shows normal EKG. No history of cardiac disease.
Donepezil is on board but he is on it chronically. He is admitting days heart rate was okay. Will ask cardiology to weigh in.
History of lung cancer status post chemo and radiation-according to family in remission
Adrenal insufficiency-continue with his replacement therapy
Discussed with at bedside
DVT PPX - SCD
Code status - Full code
DC back to dementia unit after cardiology eval and if no further agitation
Anticipated Discharge: Today
Subjective/Interval History
-
Date of Service: June 16, 2025
Earlier was this morning patient had issues needing restraints.
This morning he is pleasant and has a smile on his face without any agitation. Relates the restraints. No immediate agitation.
With his dementia and aphasia hard to communicate. He is comfortable and nontoxic.
Objective Data
-
Labs:
Laboratory Results
06/16/25
04:30
WBC 6.5
Hgb 10.6 L
Hct 32.9 L
Plt Count 190
Sodium 143
Potassium 4.2
Chloride 108 H
Carbon Dioxide 29
BUN 7 L
Creatinine 0.6 L
Glucose 98
Calcium 9.0
Vital Signs:
Vital Signs
Temp Pulse Resp BP Pulse Ox
98.3 F 56 16 130/71 99
06/16/25 07:00 06/16/25 07:00 06/16/25 07:00 06/16/25 07:00 06/16/25 07:00
I&O
06/15/25 06/16/25 06/17/25
06:59 06:59 06:59
Intake Total 600 / 600 400 / 400
Balance 600 / 600 400 / 400
Physical Exam
-
General: Comfortable
Respiratory: Non Labored Respirations; Negative Accessory Resp Muscle Use
Cardiac: Regular Rhythm, S1/S2 and Bradycardic
GI: Soft; Negative Nontender
Neuro: Awake and Alert; Negative Oriented, No Motor Deficits or Tremors
Psych: Calm and Confused; Negative Agitated
Data Reviewed
-
Labs: Labs Reviewed by me
--- NOTE | 2025-06-16 10:19 | CON.CAR ---
Addendum entered and electronically signed by Senthil Ghotra MD 06/16/25 13:40:
I saw and examined the patient.
The LAND CLEARER's note was reviewed and I agree with the note.
Comment: He is calm and without complaint. He denies dizziness and sob. On exam: rrr no mrg. Lungs CTA. Tele with sinus bradycardia, pacs. No e/o heart block, high grade av block. At this point, I would conitnue all medications. Continue
donepezil as benefit>risk. Avoid av jamin blocking agents moving forward.
No further cardiac recommendations. I will sign off.
Original Note:
Consultation
Consultation Request
Date/Time Consultation Requested: 06/16/2025 05:18
Date/Time Consultation Performed: 06/16/2025 10:00
Requesting Provider: SUYAPA Rousseau
Performing Provider: SUYAPA Hutchinson for Dr. Ghotra
Reason for Consultation: Bradycardia
Medical History
-
Chief Complaint: Change in mental status
History of Present Illness:
Darian Key is a 65-year-old male with a past medical history of significant dementia, stage IV lung cancer status in remission post Keytruda and XRT, adrenal insufficiency, and recent fall presented to the emergency department with change in mental
status. He has been living at [facility] for the last 3 years in the memory care unit. Staff at [facility] reported he had slow pupillary constriction and benitez colored stool. It was found to be heme positive in the emergency department. He is
being evaluated by GI. Cardiology was consulted for bradycardia
Past Medical History
Past Medical History: Cancer (Stage IV lung in remission), Psychiatric (Dementia) and Other (Adrenal insufficiency)
Past Surgical History: Orthopedic
Social History
Tobacco: Non-Smoker
Alcohol: None
Drug: None
Personal:
Living: Detention ([facility])
Employment: Retired
Family History
Family History: Unable to Obtain
Allergies / Home Medications
Allergy/AdvReac Type Severity Reaction Status Date / Time
indomethacin (From Indocin) Allergy Unknown Verified 06/13/25 20:14
�Medication �Instructions �Recorded �Confirmed �Type
hydrocortisone 10 mg tablet 5 mg PO HS Anti-inflammatory 12/16/20 06/14/25 History
cholecalciferol (vitamin D3) 25 25 mcg PO DAILY Supplement 06/14/25 06/14/25 History
mcg (1,000 unit) tablet (Vitamin
D3)
cyanocobalamin (vitamin B-12) 1,000 mcg PO DAILY Supplement 06/14/25 06/14/25 History
1,000 mcg tablet
donepezil 5 mg tablet 5 mg PO HS memory/cognition 06/14/25 06/14/25 History
ferrous sulfate 325 mg (65 mg 325 mg PO DAILY Supplement 06/14/25 06/14/25 History
iron) tablet
folic acid 400 mcg tablet 0.4 mg PO DAILY Supplement 06/14/25 06/14/25 History
hydrocortisone 5 mg tablet 15 mg PO DAILY Anti-Inflammatory 06/14/25 06/14/25 History
oxycodone 10 mg tablet,crush 10 mg PO Q12H Pain 06/14/25 06/14/25 History
resistant,extended release 12 hr
(OxyContin)
quetiapine 50 mg tablet (Seroquel) 75 mg PO HS Mental Health/Anxiety 06/14/25 06/14/25 History
sertraline 25 mg tablet 75 mg PO DAILY depression/anxiety 06/14/25 06/14/25 History
thiamine HCl (vitamin B1) 100 mg 100 mg PO DAILY Supplement 06/14/25 06/14/25 History
tablet (Vitamin B-1)
tramadol 25 mg tablet 25 mg PO BID Pain 06/14/25 06/14/25 History
Review of Systems
-
Unable to obtain full review of systems at this time due to: Dementia
Physical Exam
Vital Signs
Temp Pulse Resp BP Pulse Ox
98.3 F 56 16 130/71 99
06/16/25 07:00 06/16/25 07:00 06/16/25 07:00 06/16/25 07:00 06/16/25 07:00
Lab Results
06/16/25 04:30
06/16/25 04:30
Physical Exam
General: Well Developed, Well Nourished, No Apparent Distress and Comfortable
HEENT: Normocephalic, Anicteric and Moist Mucous Membranes
Respiratory: Clear and Non Labored Respirations
Cardiac: S1/S2 and Regular Rhythm
Breast: Deferred by me
GI: Non Tender, Non Distended and Normal Bowel Sounds
Genito-urinary: No Costovertebral Tender
Musculoskeletal: No Clubbing and No Cyanosis
Skin: Warm
Neuro: AO x 3
Hematologic/Lymphatic: No Lymphadenopathy
Psych: Calm
Impression / Plan
-
I/P: 65M with significant dementia, stage IV lung cancer in remission status post Keytruda and XRT, adrenal insufficiency, and recent fall presented to the emergency department with change in mental status.
Bradycardia, sinus
- Unable to verbalize if he is symptomatic
- Unclear if when heart rate was in the upper 30s if he was asleep
- He is not on any AV jamin agents
Dementia, with behavioral disturbance
- Baseline has aphasia
- Code purple this morning briefly required restraints
Anemia with heme positive stool
- Endoscopic 06/15/2025 showed gastritis, biopsied
- His does not want to pursue colonoscopy at this time
Stage IV lung cancer, s/p Keytruda, followed by Dr. Pisano, in remission
Adrenal insufficiency chronic, on hydrocortisone as an outpatient
Falls, head CT stable
Data Reviewed
-
EKG: Report Reviewed by me (Sinus bradycardia, rate 57)
Labs: Labs Reviewed by me
Old Records: Reviewed
[2025-06-16 11:00] VITALS: BP 121/64
[2025-06-16 15:00] VITALS: BP 134/75
[2025-06-16] MEDS: RISPERDAL 0.25 MG PO (15:39)
--- NOTE | 2025-06-16 17:45 | CON.MD ---
Consultation - Medical
-
65 yr old M w/ PMH of stave IV lung cancer s/p chemo in remission, adrenal insufficiency, and progressive dementia (currently lives in a memory care unit). Presented on admission with altered mental status following a recent fall. Found to have
melena and with Hg decrease to 10 from 12 in Dec 2024, however Hg has been stable & no concerns for acute bleed found - seen by GI, will be monitoring Hg outpatient.
Psychiatry consulted due to intermittent agitation. Pt with progressive dementia with aphasia, as per reports his current cognitive state is his baseline and prior change in mental status has since resolved. Patient seen at bedside, sitting in
chair comfortably - was pleasant on interview, smiling at times, however was unable to provide much meaningful response to the questions posed. Not oriented other than to self, easily confused and distracted - restless and at times looking around
anxiously. He was unable to explain why he is anxious, but was able to report that he does feel restless and anxious and that this is not usual for him. As per report, pt presented as paranoid and distressed when agitated overnight - was accussing
staff of breaking into his home. No current overt delusions or hallucinations observed but this is limited due to pts limited ability to respond to questions meaningfully. As per nursing, he generally is redirectable but at times even with
redirection can become agitated & distressed - on chart review agitation seems to be more in evenings, which is not unusual. Did previously need restraints but has been managing fairly well since their removal this morning.
Dementia, unspecified, w/ behavioral disturbance
MSE: male, cooperative, good eye contact, speech is hesitant and slow. Mood is anxious, affect is constricted & anxious but appropriate. Denies SI/HI, intermittent paranoia reported. Thought process is confused, disjointed. Memory not formally
tested. Only oriented to self (baseline reportedly). Insight/judgement poor.
Increase quetiapine to 100mg HS - can likely resume prior 75mg dose once he returns to a more familiar environment
Quetiapine 25mg BIDPRN acute agitation
Continue sertraline 75mg daily
[2025-06-16] MEDS: SEROQUEL 100 MG PO (21:02)
[2025-06-16] MEDS: DELTASONE 5 MG PO (21:05)
[2025-06-16 23:00] VITALS: BP 134/68
[2025-06-17 07:00] VITALS: BP 115/57
[2025-06-17] MEDS: ARICEPT 10 MG PO (08:46)
[2025-06-17] MEDS: FOLVITE 0.5 MG PO (08:46)
[2025-06-17] MEDS: VITAMIN B1 100 MG PO (08:46)
[2025-06-17] MEDS: VITAMIN B-12 1000 MCG PO (08:46)
[2025-06-17] MEDS: ULTRAM 25 MG PO ×2 (08:47→19:43)
[2025-06-17] MEDS: VITAMIN D3 (cholecalciferol) 25 MCG PO (08:47)
[2025-06-17] MEDS: PROTONIX 40 MG PO (08:47)
[2025-06-17] MEDS: ZOLOFT 75 MG PO (08:47)
[2025-06-17] MEDS: CORTEF 15 MG PO (08:48)
--- NOTE | 2025-06-17 12:33 | W.PN.HOSP.TC ---
Today's Communication/Plan
-
Assessment / Plan
Assessment / Plan
This is a 65-year-old with progressive dementia, renal insufficiency, and known chronic anemia presenting to the emergency department following a fall and head strike few days ago and development of alteration in mental status. Patient is
apparently back to baseline per EMS and staff. However family is sleepy secondary to propofol after being agitated isatu. The CT of the head was negative. C-spine was negative. Is hemoglobin was 10 down from 12 a few months ago. MCV was
unremarkable. Has heme positive dark stools in the ED and was read to have dark benitez colored stool at the senior living.
PLAN:
Melena - suspected melena with heme positive dark stools, benitez colored stools at senior living, drop in hemoglobin. Patient unable to provide much history. HD stable, hemoglobin 10
- Patient never had a colonoscopy. Was on PPI during his chemo for lung cancer. Currently not on PPI.
- EGD without signs of bleeding or ulcers
- Resume asa 81
- GI discussed with plan is to hold on colonoscopy and follow H&H.
- Daily Protonix
AMS
Patient with dementia and aphasia
Patient today with behavioral disturbances needing restraints.
CT of the head and neck with no acute intracranial abnormalities or fractures. Patient recently had a fall.
No obvious data to support metabolic encephalopathy.
This morning he is calm and comfortable. Will remove the restraints and follow.
Did not need any medications for agitation this morning.
Bradycardia-sinus
Not on beta-blockers. Admitting EKG shows normal EKG. No history of cardiac disease.
Donepezil is on board but he is on it chronically. He is admitting days heart rate was okay.
Cardiology rec to avoid AV jamin. Outpatient follow-up
History of lung cancer status post chemo and radiation-according to family in remission
Adrenal insufficiency-continue with his replacement thera[y
Continue GI prophylaxis
Pending facility
Anticipated Discharge: Within 24 hours
Subjective/Interval History
-
Date of Service: June 17, 2025
Seen and examined. No new complaints. No acute overnight events.
Daughter at bedside updated
Pending return to facility
No bleeding noted
Objective Data
-
Vital Signs:
Vital Signs
Temp Pulse Resp BP Pulse Ox
97.4 F 52 17 115/57 97
06/17/25 07:00 06/17/25 07:00 06/17/25 07:00 06/17/25 07:00 06/17/25 07:00
I&O
06/16/25 06/17/25 06/18/25
06:59 06:59 06:59
Intake Total 400 / 400 0 / 1859
Balance 400 / 400 1859 / 1859
Physical Exam
-
General: Appears Chronically Ill and Cachectic
HEENT: Normocephalic, Atraumatic, Moist Mucous Membranes and Anicteric
Respiratory: Clear to Auscultation
Cardiac: Regular Rhythm and S1/S2
GI: Soft, Nontender and Nondistended
Musculoskeletal: No Clubbing, No Cyanosis and No Edema
Neuro: Awake, Alert and AO x 3
Psych: Calm
[2025-06-17 15:00] VITALS: BP 134/80
--- NOTE | 2025-06-17 15:37 | W.PN.UPDATE ---
Update Note
Progress Note Update
Chart reviewed, pt seen at bedside - sitting up in chair by bed watching TV. No behavioral disturbances reported from yesterday, has been calm and appears less restless today. Remains disoriented and unable to engage in menaningful conversation as
responses are disjointed and unrelated to questions posed. Attempted to engage him about college football which he appeared to be watching prior to interview however pt had difficulty with this as well. As per report, this appears to be his baseline
however and pt is overall pleasant and amicable throughout interview.
Continue quetiapine to 100mg HS
Quetiapine 25mg BIDPRN acute agitation
Continue sertraline 75mg daily
[2025-06-17] MEDS: SEROQUEL 100 MG PO (21:39)
[2025-06-17] MEDS: DELTASONE 5 MG PO (21:40)
[2025-06-17 23:00] VITALS: BP 101/55
[2025-06-18 07:20] VITALS: BP 127/61
[2025-06-18] MEDS: VITAMIN D3 (cholecalciferol) 25 MCG PO (08:16)
[2025-06-18] MEDS: CORTEF 15 MG PO (08:16)
[2025-06-18] MEDS: ZOLOFT 75 MG PO (08:16)
[2025-06-18] MEDS: ULTRAM 25 MG PO ×2 (08:16→21:14)
[2025-06-18] MEDS: ARICEPT 10 MG PO (08:16)
[2025-06-18] MEDS: PROTONIX 40 MG PO (08:17)
[2025-06-18] MEDS: FOLVITE 0.5 MG PO (08:17)
[2025-06-18] MEDS: VITAMIN B1 100 MG PO (08:17)
[2025-06-18] MEDS: VITAMIN B-12 1000 MCG PO (08:17)
[2025-06-18] MEDS: SEROQUEL 25 MG PO (13:54)
[2025-06-18 15:30] VITALS: BP 114/59
--- NOTE | 2025-06-18 16:08 | CM ---
Pt ambulating with his in halls . He was corporative.
Requested PT OT evals from .
Will review PT OT with [facility].
Spoke with she requests return to [facility].
PLAN Depending on PT evals return to [facility]
--- NOTE | 2025-06-18 16:49 | W.PN.HOSP.TC ---
Today's Communication/Plan
-
PT OT consulted per case management recommendations
Awaiting to hear back from case management
Assessment / Plan
Assessment / Plan
This is a 65-year-old with progressive dementia, renal insufficiency, and known chronic anemia presenting to the emergency department following a fall and head strike few days ago and development of alteration in mental status. Patient is
apparently back to baseline per EMS and staff. However family is sleepy secondary to propofol after being agitated isatu. The CT of the head was negative. C-spine was negative. Is hemoglobin was 10 down from 12 a few months ago. MCV was
unremarkable. Has heme positive dark stools in the ED and was read to have dark benitez colored stool at the alf.
PLAN:
Melena - suspected melena with heme positive dark stools, benitez colored stools at alf, drop in hemoglobin. Patient unable to provide much history. HD stable, hemoglobin 10
- Patient never had a colonoscopy. Was on PPI during his chemo for lung cancer. Currently not on PPI.
- EGD without signs of bleeding or ulcers
- Continue asa 81
- GI discussed with plan is to hold on colonoscopy and follow H&H.
- Daily Protonix
AMS
Patient with dementia and aphasia
Patient today with behavioral disturbances needing restraints.
CT of the head and neck with no acute intracranial abnormalities or fractures. Patient recently had a fall.
No obvious data to support metabolic encephalopathy.
This morning he is calm and comfortable. Will remove the restraints and follow.
Did not need any medications for agitation this morning.
Bradycardia-sinus
Not on beta-blockers. Admitting EKG shows normal EKG. No history of cardiac disease.
Donepezil is on board but he is on it chronically. He is admitting days heart rate was okay.
Cardiology rec to avoid AV jamin. Outpatient follow-up
History of lung cancer status post chemo and radiation-according to family in remission
Adrenal insufficiency-continue with his replacement thera[y
Continue GI prophylaxis
Pending facility
Anticipated Discharge: Within 24 hours
Subjective/Interval History
-
Date of Service: June 18, 2025
Seen and examined. No new complaints. No acute overnight events.
Objective Data
-
Vital Signs:
Vital Signs
Temp Pulse Resp BP Pulse Ox
98.1 F 68 16 114/59 99
06/18/25 15:30 06/18/25 15:30 06/18/25 15:30 06/18/25 15:30 06/18/25 15:30
I&O
06/17/25 06/18/25 06/19/25
06:59 06:59 06:59
Intake Total 1860 / 1860 1440 / 1440 480 / 480
Balance 1860 / 1860 1440 / 1440 480 / 480
Physical Exam
-
General: Well Developed, Well Nourished, No Apparent Distress and Comfortable
HEENT: Normocephalic, Atraumatic, Moist Mucous Membranes and Anicteric
Respiratory: Clear to Auscultation
Cardiac: Regular Rhythm
GI: Soft, Nontender and Nondistended
Skin: Warm
Neuro: Awake, Alert and Other (Pleasantly confused)
Psych: Calm
[2025-06-18] MEDS: SEROQUEL 100 MG PO (21:15)
[2025-06-18] MEDS: DELTASONE 5 MG PO (21:18)
[2025-06-18] MEDS: ZYPREXA 2.5 MG IM (22:08)
[2025-06-18] MEDS: STERILE WATER FOR INJECTION 2.1 ML IM (22:10)
[2025-06-19 07:30] VITALS: BP 121/69
[2025-06-19] MEDS: CORTEF 15 MG PO (08:57)
[2025-06-19] MEDS: ARICEPT 10 MG PO (08:57)
[2025-06-19] MEDS: PROTONIX 40 MG PO (08:57)
[2025-06-19] MEDS: VITAMIN B-12 1000 MCG PO (08:57)
[2025-06-19] MEDS: ULTRAM 25 MG PO (08:58)
[2025-06-19] MEDS: FOLVITE 0.5 MG PO (08:58)
[2025-06-19] MEDS: VITAMIN D3 (cholecalciferol) 25 MCG PO (08:58)
[2025-06-19] MEDS: VITAMIN B1 100 MG PO (08:59)
[2025-06-19] MEDS: ZOLOFT 75 MG PO (08:59)
--- NOTE | 2025-06-19 11:32 | W.PN.UPDATE ---
Update Note
Progress Note Update
Pt seen, chart reviewed. Pt lying peacefully in bed with blanket on. Pt makes eye contact, alert when spoken to, offers no complaints, appears pleasant but disoriented. Pt tries to answer but is not able to give coherent responses. Pt calm, no
further agitation noted for the past few days. Pt had only one dose of prn Seroquel 25 mg since 06/16.
Imp: Dementia- hx of primary progressive aphasia- with behavior disturbance, improving
Rec: continue current Aricept, Zoloft, Seroquel. Will follow
[2025-06-19 12:12] VITALS: BP 121/74; PULSE 60; PULSE 64; O2SAT 99
--- NOTE | 2025-06-19 12:24 | W.PN.HOSP.TC ---
Addendum entered and electronically signed by Bethel Schaefer MD 07/02/25 11:40:
Acute blood loss anemia with baseline iron deficiency anemia
Original Note:
Today's Communication/Plan
-
Assessment / Plan
Assessment / Plan
This is a 65-year-old with progressive dementia, renal insufficiency, and known chronic anemia presenting to the emergency department following a fall and head strike few days ago and development of alteration in mental status. Patient is
apparently back to baseline per EMS and staff. However family is sleepy secondary to propofol after being agitated isatu. The CT of the head was negative. C-spine was negative. Is hemoglobin was 10 down from 12 a few months ago. MCV was
unremarkable. Has heme positive dark stools in the ED and was read to have dark benitez colored stool at the residential.
General: Well Developed, Well Nourished, No Apparent Distress and Comfortable
HEENT: Normocephalic, Atraumatic, Moist Mucous Membranes and Anicteric
Respiratory: Clear to Auscultation
Cardiac: Regular Rhythm
GI: Soft, Nontender and Nondistended
Skin: Warm
Neuro: Awake, Alert and Other (Pleasantly confused)
Psych: Calm
PLAN:
Melena - suspected melena with heme positive dark stools, benitez colored stools at residential, drop in hemoglobin. Patient unable to provide much history. HD stable, hemoglobin 10
- Patient never had a colonoscopy. Was on PPI during his chemo for lung cancer. Currently not on PPI.
- EGD without signs of bleeding or ulcers
- Continue asa 81
- GI discussed with plan is to hold on colonoscopy and follow H&H.
- Daily Protonix
AMS
Patient with dementia and aphasia
Patient today with behavioral disturbances needing restraints.
CT of the head and neck with no acute intracranial abnormalities or fractures. Patient recently had a fall.
No obvious data to support metabolic encephalopathy.
This morning he is calm and comfortable. Will remove the restraints and follow.
Did not need any medications for agitation this morning.
Bradycardia-sinus
Not on beta-blockers. Admitting EKG shows normal EKG. No history of cardiac disease.
Donepezil is on board but he is on it chronically. He is admitting days heart rate was okay.
Cardiology rec to avoid AV jamin. Outpatient follow-up
History of lung cancer status post chemo and radiation-according to family in remission
Adrenal insufficiency-continue with his replacement thera[y
Continue GI prophylaxis
Pending facility and PT/OT eval
Anticipated Discharge: Within 24 hours
Subjective/Interval History
-
Date of Service: June 19, 2025
Seen and examined. No new complaints. No acute overnight events.
Objective Data
-
Vital Signs:
Vital Signs
Temp Pulse Resp BP Pulse Ox
98.1 F 56 16 121/69 99
06/19/25 07:30 06/19/25 07:30 06/19/25 07:30 06/19/25 07:30 06/19/25 07:30
I&O
06/18/25 06/19/25 06/20/25
06:59 06:59 06:59
Intake Total 1440 / 1440 960 / 960 480 / 480
Output Total 350 / 350 250 / 250
Balance 1440 / 1440 610 / 610 230 / 230
--- NOTE | 2025-06-19 13:18 | W.DCSUMMARY ---
Discharge Summary
Discharge Data
Date of Admission: 06/14/25
Date of Discharge: 06/19/25
-
Pending Results: Yes
Additional Pending Results:
Hpylori bx
Hospital Course
65-year-old male with past medical history significant for progressive dementia, history of stage IV lung cancer status post chemo, adrenal insufficiency
Presented with change in mental status after sustaining a fall on Wednesday and was found to have a hematoma noted on the right side of his head with slow pupillary constriction. Should be noted he does have progressive dementia. CT of the head was
negative for intracranial bleed or other acute intracranial process. C-spine was negative for acute trauma. Suspect change in mental status was/is likely secondary to progressive dementia.
Unfortunately, while in the ED found to have melanotic stools with a 2 g hemoglobin drop over a few months therefore EGD planned for admission. Was evaluated by GI upper endoscopy was completed without acute ulcerative changes. However noted
patchy mild inflammation characterized by erythema. Biopsies taken H. pylori continue PPI daily. Resumed on aspirin.
Was evaluated by cardiology for sinus bradycardia recommended to avoid AV jamin blocking agents. No indications for PPM at this time.
Findings:
- The examined esophagus was normal.
- Patchy mild inflammation characterized by erythema was found in
the cardia. Biopsies were taken with a cold forceps for histology.
Biopsies were taken with a cold forceps for Helicobacter pylori
testing.
- The examined duodenum was normal.
Impression:
- Normal esophagus.
- Gastritis, characterized by erythema. Biopsied.
- Normal examined duodenum.
Will need outpatient PCP and GI follow up to review bipsy results from EGD
Discharge Plan
-
Patient Disposition: Senior Care/SNF
Discharge Diagnosis/Procedures: Progressive Dementia
Normocytic anemia
Gastritis
Condition: Fair
Diet: As tolerated, Low Fat, Low Cholesterol, 2 Gram Sodium and No added salt
Activity: As tolerated
Activity Restrictions/Additional Instructions:
Presented with change in mental status after sustaining a fall on Wednesday and was found to have a hematoma noted on the right side of his head with slow pupillary constriction. Should be noted he does have progressive dementia. CT of the head was
negative for intracranial bleed or other acute intracranial process. C-spine was negative for acute trauma. Suspect change in mental status was/is likely secondary to progressive dementia.
Unfortunately, while in the ED found to have melanotic stools with a 2 g hemoglobin drop over a few months therefore EGD planned for admission. Was evaluated by GI upper endoscopy was completed without acute ulcerative changes. However noted
patchy mild inflammation characterized by erythema. Biopsies taken H. pylori continue PPI daily. Resumed on aspirin.
Was evaluated by cardiology for sinus bradycardia recommended to avoid AV jamin blocking agents. No indications for PPM at this time.
Findings:
- The examined esophagus was normal.
- Patchy mild inflammation characterized by erythema was found in
the cardia. Biopsies were taken with a cold forceps for histology.
Biopsies were taken with a cold forceps for Helicobacter pylori
testing.
- The examined duodenum was normal.
Impression:
- Normal esophagus.
- Gastritis, characterized by erythema. Biopsied.
- Normal examined duodenum.
Will need outpatient PCP and GI follow up to review bipsy results from EGD
Referrals:
Heather Hernandez MD [Active, Gastroenterology] - in two to three weeks
NICCI MURCIA NP [Family Provider, Family Practice]
Prescriptions:
New
donepezil 10 mg Tablet
10 mg PO DAILY Qty: 30 0RF
pantoprazole 40 mg Tablet,Delayed Release (Dr/Ec)
40 mg PO DAILY Qty: 30 0RF
Continued
hydrocortisone 10 MG tablet
5 mg PO HS
ferrous sulfate 325 mg (65 mg iron) Tablet
325 mg PO DAILY
oxycodone [OxyContin] 10 mg Tablet,Oral Only,Ext.Rel.12 Hr
10 mg PO Q12H
folic acid 400 mcg Tablet
0.4 mg PO DAILY
thiamine HCl (vitamin B1) [Vitamin B-1] 100 mg Tablet
100 mg PO DAILY
sertraline 25 mg Tablet
75 mg PO DAILY
quetiapine [Seroquel] 50 mg Tablet
75 mg PO HS
cholecalciferol (vitamin D3) [Vitamin D3] 25 mcg (1,000 unit) Tablet
25 mcg PO DAILY
tramadol 25 mg Tablet
25 mg PO BID
hydrocortisone 5 mg Tablet
15 mg PO DAILY
cyanocobalamin (vitamin B-12) 1,000 mcg Tablet
1,000 mcg PO DAILY
Discontinued
donepezil 5 mg Tablet
5 mg PO HS
Discharge Orders:
Discharge Patient (As Directed); Ordered 06/19/25
Ordered By: Bethel Schaefer
Discharge Date and Time
Print Language: GERMAN
--- NOTE | 2025-06-19 13:29 | CM ---
As per RN pt had no behaviors.
PT OT evals reviewed with Akhil from [facility] memory care.
PT OT evals faxed to [facility].
Akhil accepted patient back today.
María aware of dc .
Pts did not feel comfortable with driving pt to [facility].
[facility] does not provide transportation .
Spoke with Anisha Andersen trampoline team coach Pt will need an ambulance due to dementia hx.
Medical nec form completed.
aware and agrees with dc.
[facility].
report [phone] or [phone] nursing station
fax [phone]
PLAN Return to [facility]
--- NOTE | 2025-06-19 15:11 | PN.CDI ---
CDI
- -
CDI:
Physician Documentation Request
Admit Date: 06/14/25 01:28
Dear Doctor Silvano,
Clinical Indicators:
Patient admitted with melena.
Home medications include: Ferrous Sulfate 325 mg po daily.
Discharge summary: 'Normocytic Anemia...'ED found to have melanotic stools with a 2 g hemoglobin drop over a few months therefore EGD planned for admission.'
Based on the above, could you clarify, in your progress note, which of the following is the most likely type of anemia you are evaluating, monitoring and/or treating?
Chronic iron deficiency anemia due to blood loss
Acute blood loss anemia with baseline iron deficiency anemia
Other, please specify
Use of terms such as suspected, likely, concern for, or probable (associated with a specific diagnosis that is being evaluated, monitored, or treated as if it exists) are acceptable and can be coded in the inpatient setting, when documented at the
time of discharge.
Thank you,
ANTONIO Amin RN
CDI Specialist
available via tiger text
Please use your independent medical judgment in providing your response.
[2025-06-19 16:00] VITALS: BP 134/75
== END 2025-06-19 20:09 | DRG 378 ==
LOC: 3 WEST ACU 01:28
PROVIDERS: Emergency Medicine; Internal Medicine; Internal Medicine Gastroenterology; Nurse Practitioner Gerontology; Student in an Organized Health Care Education/Training Program; ADMITTING PHYSICIAN Internal Medicine; ATTENDING PHYSICIAN Hospitalist; CONSULT PHYSICIAN Internal Medicine Gastroenterology; CONSULT PHYSICIAN Psychiatry & Neurology Psychiatry; EMERGENCY PHYSICIAN Emergency Medicine; FAMILY PHYSICIAN Nurse Practitioner Adult Health; OTHER PHYSICIAN Nurse Practitioner
PROC: 0DB68ZX Excision of Stomach, Via Natural or Artificial Opening Endoscopic, Diagnostic (ICD-10-PCS; 2025-06-15)
DX: K29.71 Gastritis, unspecified, with bleeding (principal); D62 Acute posthemorrhagic anemia; E27.3 Drug-induced adrenocortical insufficiency; F02.811 Dementia in other diseases classified elsewhere, unspecified severity, with agitation; F02.83 Dementia in other diseases classified elsewhere, unspecified severity, with mood disturbance; Z92.21 Personal history of antineoplastic chemotherapy; Z85.118 Personal history of other malignant neoplasm of bronchus and lung; T45.AX5A Adverse effect of immune checkpoint inhibitors and immunostimulant drugs, initial encounter; W19.XXXA Unspecified fall, initial encounter; S00.83XA Contusion of other part of head, initial encounter; F32.A Depression, unspecified; Z87.891 Personal history of nicotine dependence; Z79.82 Long term (current) use of aspirin; K21.9 Gastro-esophageal reflux disease without esophagitis; M06.9 Rheumatoid arthritis, unspecified; N28.9 Disorder of kidney and ureter, unspecified; Z79.52 Long term (current) use of systemic steroids; Z79.899 Other long term (current) drug therapy; Z80.0 Family history of malignant neoplasm of digestive organs; Z92.3 Personal history of irradiation
CPT/HCPCS: 70450; 71046; 72125; 73610; 80048; 80053; 81003; 82728; 82962; 83540; 83550; 83735; 85014; 85018; 85025; 85027; 85610; 85730; 86850; 86900; 86901; 87045; 87046; 87324; 87427; 87449; 88305; 89055; 93005; 97163; 97167; J2358

== ENCOUNTER 2025-08-13 09:38 | Emergency (ER) | payer BC, SELFPAY ==
[2025-08-13] VITALS (8 sets, daily range): BP systolic 114–141; BP diastolic 68–95; BMI 22.9
[2025-08-13 10:10] LABS: Hematocrit 32.5 % (39.0-52.0); Hemoglobin 10.7 g/dL (13.0-18.0); Mean Corp Hgb Conc. 32.9 g/dL (33.0-37.0); Mean Corpuscular Volume 89.0 fL (80.0-94.0); Nucleated Red Blood Cells % 0 % (-); Platelet Count 229 10^3/uL (130-400); Red Cell Dist. Width 13.2 % (11.5-14.5)
[2025-08-13 10:26] LABS: ALT (SGPT) 10 U/L (0-50); AST (SGOT) 18 U/L (17-59); Albumin 4.1 g/dl (3.5-5.0); Alkaline Phosphatase 47 U/L (38-126); Blood Urea Nitrogen 20 mg/dl (9-20); Calcium 9.1 mg/dl (8.4-10.2); Carbon Dioxide 28 mmol/L (22-30); Chloride 103 mmol/L (98-107); Estimated Creatinine Clearance 115 ml/min; Glucose 81 mg/dl (70-99); Potassium 4.4 mmol/L (3.5-5.1); Sodium 138 mmol/L (135-145); Total Protein 7.5 g/dl (6.3-8.2); eGFR > 60.00
--- NOTE | 2025-08-13 11:46 | ED.GENMED ---
History of Present Illness
General
Chief Complaint: Abdominal Symptoms
Source: patient, records and ambulance crew
Exam Limitations: dementia
Time Seen by Provider: 08/13/25 11:08
Nursing documentation reviewed up to this point in time: agreed with
History of Present Illness
History of Present Illness:
65-year-old male with a past medical history as noted significant for dementia with aggressive behavior who presents to the ER today from [facility] where he resides long-term for evaluation after vomiting. Patient is not a reliable historian due
to his significant dementia and difficulty expressing himself which is baseline. EMS was called today by staff at [facility] after patient vomited while eating breakfast. Here in the ER patient does not seem to have any pain, has not had
additional vomiting. Rest of history somewhat limited.
Past History
Past History
ED Past Medical History: Cancer (Lung in remission since January 2020), GERD, Psychiatric (Primary progressive aphasia with dementia) and Other (DVT)
ED Past Surgical History: Orthopedic and Other
Social History
Tobacco: Former smoker
Alcohol: None
Drug: None
Personal:
Living: with family
Employment: Retired
Family History
Family History: Other (Noncontributory)
Review of Systems
Review of Systems
Unable to obtain full review of systems at this time due to: dementia
All Other Systems: Not applicable
Phy Exam
Physical Exam
Physical Exam:
General: Awake, alert, was somewhat anxious on arrival but patient is relatively calm during my assessment
Head: Normocephalic, atraumatic
Eyes: Conjunctiva normal, sclera anicteric
Throat: Airway intact, handling secretions
Neck: Trachea midline, supple without meningismus
Lungs: Clear to auscultation bilaterally, no wheezing, rales, rhonchi
Heart: Regular rate and rhythm, no murmurs, gallops, or rubs
Abd: Soft, non distended, mild diffuse tenderness
Neuro: Moving all extremities without gross deficit
Skin: Warm and dry
Extremities: No edema in extremities, warm and well-perfused
Scores
Heart Failure Risk
Heart Failure Risk Score: Not Applicable
Heart Score for Chest Pain Patients
STEMI patient?: Not applicable
Withdrawal Assessment of Alcohol
Withdrawal Assessment Completed?: Not applicable
Course
Orders/Labs/Results
Orders:
Orders
08/13/25 09:45
Electrocardiogram (*1) Urgent
Reason for Study: Fatigue / Weakness
EKG- Treatment ONCE
08/13/25 10:02
CXR2 [CR Chest - 2 Views ] Urgent
Comment:
Reason For Exam: weakness/n/v
08/13/25 10:03
Complete Blood Count/With Diff Urgent
Comprehensive Metabolic Panel Urgent
08/13/25 11:00
Lipase Urgent
08/13/25 11:43
CT Abd/pelvis W Iv Cont Urgent
Comment:
Reason For Exam: abd tenderness, vomiting
Midazolam HCl [Versed] 2 mg IV NOW STA
08/13/25 11:45
Haloperidol Lactate [Haldol] 2.5 mg IV NOW STA
08/13/25 12:21
COVID-19 Antigen Urgent
Source: Nasal Swab
Troponin I Urgent
Influenza A+B Rapid Molecular Urgent
[facility]ONIO Source: Nasal Swab
Specimen Description:
08/13/25 13:03
Lidocaine 2% [Lidocaine Uro-Jet 2%] 1 syringe .ROUTE .ST-MED ONE
08/13/25 13:23
Urinalysis Reflex To Culture Urgent
Date Specimen was Collected: 08/13/25
Time Specimen was Collected: 13:21
Urine Microscopic Reflex Cult Urgent
Urine Culture Urgent
ANTONIO Source: U
Specimen Description:
Date Specimen was Collected: 08/13/25
Time Specimen was Collected: 13:21
08/13/25 14:11
Acetaminophen 1000MG/100Ml [Ofirmev] 1,000 mg in 100 ml IV ONCE
Acetaminophen IV Indication:: ED Narcotic Naive Pt-ONCE
08/13/25 14:23
Acetaminophen [Tylenol] 650 mg PO NOW STA
Cephalexin Monohydrate [Keflex] 500 mg PO NOW STA
08/13/25 14:44
NSS 500mL Bolus over 1 hr 0.9% Sodium Chloride 500 ml [Nss] 500 ml IV BOLUS
Abnormal Lab Results
08/13/25 08/13/25
10: 13:23
RBC 3.65 L 10^6/uL
(4.70-6.10)
Hgb 10.7 L g/dL
(13.0-18.0)
Hct 32.5 L %
(39.0-52.0)
MCHC 32.9 L g/dL
(33.0-37.0)
Absolute Monos (auto) 0.8 H 10^3/uL
(0.1-0.6)
Lymphocytes % 19.2 L %
(20.5-51.1)
Ur Occult Blood Reflex 4+ A
(Negative)
Leukocyte Esterase Rfl 1+ A
(Negative)
Urine RBC 26-30 A /HPF
(0-2)
Urine WBC (Reflex) 26-30 A /HPF
(0-5)
Urine Bacteria (Reflex) Few A
(Negative)
Urine Albumin (Reflex) 1+ A
(Neg - Trace)
08/13/25 10:03
08/13/25 10:03
Vital Signs
Initial and Last Documented VS:
Initial Vital Signs
Pulse Resp BP Pulse Ox
75 34 123/70 100
08/13/25 09:45 08/13/25 09:45 08/13/25 09:45 08/13/25 09:45
Last Documented Vital Signs
Temp Pulse Resp BP Pulse Ox
38.6 C H 80 13 129/71 100
08/13/25 13:27 08/13/25 14:15 08/13/25 14:15 08/13/25 14:00 08/13/25 14:15
MDM/Problems Addressed
Differential Diagnosis Includes:
Gastritis/enteritis, cholelithiasis, cholecystitis, pancreatitis, bowel obstruction, anginal equivalent, food poisoning, viral syndrome
MDM/Problems Addressed:
65-year-old male with a history of significant dementia presents for evaluation after an episode of vomiting at breakfast. Patient is a limited historian due to significant dementia, thankfully is not vomiting here does not appear to be in distress
but does seem to have some tenderness on exam�his exam is as documented. His vital signs fortunately are within acceptable range here. Will plan to check labs including a CBC and a CMP, troponin, lipase. His EKG showed no ischemia. Send viral
swabs. Will check CT abdomen pelvis�he does get easily agitated here will need sedation to facilitate imaging. Will reassess after the above.
Labs reviewed: CBC shows stable anemia, CMP no clinically significant abnormalities�LFTs are notably normal. His lipase is normal. Chest x-ray no acute disease. CT abdomen shows possible enteritis but no other acute abnormalities. Awaiting rest
of workup but patient has not had any additional vomiting here, remains comfortable with reassuring vitals. If rest of workup is negative and he remains clinically stable can likely be discharged back to nursing facility with supportive care.
Patient did have low-grade fever here�treat with Tylenol. His urinalysis returned back with some bacteria and pyuria�he did have some bladder inflammation on CT Will cover with antibiotics for UTI although overall given enteritis on CT and main
presenting symptom is 1 episode of vomiting suspect this is more likely viral enteritis. He is hemodynamically stable. His is at bedside and I spoke with her to discuss results and treatment plan�given his significant dementia and agitation I
think hospitalization would likely be more detrimental than beneficial especially without sepsis. He gets very anxious and agitated with approach here and I think hospitalization would worsen this. I think he is stable to be discharged back to his
usp facility and advised supportive care, bland diet, plenty of fluids and will cover with antibiotics. His feels comfortable with this plan. All questions answered
Chronic conditions affecting care:
Dementia
*Radiology
Radiology exam reviewed: radiology read reviewed
*Pulse Oximetry
SaO2: 99
Oxygen Mode of Delivery: Room air
Patient hypoxic: no (99%)
*EKG
Interpreted by ED Provider?: Yes
Heart Rate: 64
Rate: normal
Rhythm: sinus
Wishek: normal axis
Interval: normal interval and normal QT interval
QRS Pattern: normal QRS
Ischemia: no ischemia
*Critical Care Note
Total Time (30-74mins, 75-104mins- exclusive of procedures): Not Applicable
Data Reviewed
Review of Other/Old Records Reveals: Labs and Records
Source: patient, records, ambulance crew and jail
Patient Management
Discussion with other providers: senior living staff (Discussed with jail staff directly)
Escalation/DeEscalation of care consider admission/obs:
Considered admission�shared decision making discharged
ED Attending Note
-
Portions of this chart may have been created with voice recognition software.� Occasional wrong word or��sound alike� substitutions may have occurred due to the inherent limitations of voice recognition software.
Discharge Plan
Departure
Patient Disposition: Home (Routine Discharge)
Date of Disposition: 08/13/25
Time of Disposition: 14:30
Patient with high blood pressure during this ER visit?: No
Discharge Problem:
Vomiting, Enteritis
Instructions: Nausea and Vomiting, Adult (DC)
Prescriptions:
New
cephalexin 500 mg capsule
500 mg PO QID 7 Days Qty: 28 0RF
No Action
hydrocortisone 10 MG tablet
5 mg PO HS
ferrous sulfate 325 mg (65 mg iron) Tablet
325 mg PO DAILY
oxycodone [OxyContin] 10 mg Tablet,Oral Only,Ext.Rel.12 Hr
10 mg PO Q12H
folic acid 400 mcg Tablet
0.4 mg PO DAILY
thiamine HCl (vitamin B1) [Vitamin B-1] 100 mg Tablet
100 mg PO DAILY
sertraline 25 mg Tablet
75 mg PO DAILY
quetiapine [Seroquel] 50 mg Tablet
75 mg PO HS
cholecalciferol (vitamin D3) [Vitamin D3] 25 mcg (1,000 unit) Tablet
25 mcg PO DAILY
hydrocortisone 5 mg Tablet
15 mg PO DAILY
cyanocobalamin (vitamin B-12) 1,000 mcg Tablet
1,000 mcg PO DAILY
pantoprazole 40 mg Tablet,Delayed Release (Dr/Ec)
40 mg PO DAILY Qty: 30 0RF
donepezil 10 mg tablet
10 mg PO HS
Referrals:
UNKNOWN - PT DOES,NOT KNOW [Family Provider]
Activity Restrictions/Additional Instructions:
Patient should be seen by his primary doctor within the next few days. His scan in the ER today showed likely a mild enteritis; this could be a viral illness. His diet should be bland over the next 3 to 5 days. He should drink plenty of fluids.
He also had some bacteria in his urine and so he was given antibiotics and he should take these as prescribed. Please return with worsening symptoms.
Thank you for visiting the Emergency Department at [facility].
1. Please schedule a follow up appointment as directed. Call first thing tomorrow morning to make an appointment.
2. If indicated, please take your medications as instructed and indicated on discharge paperwork.
3. If any of your symptoms do not improve, or persist, or become more severe within 6-12 hours, please return to the emergency department for further care.
4. Please return to the emergency department if you develop a headache, neck pain/stiffness, fever greater than 100.4F, chest pain, shortness of breath, persistent nausea, vomiting, slurred speech, difficulty walking, numbness/tingling, weakness,
signs of infection or any other symptoms that are worrisome to you.
Please call [phone] if you have any questions.
Interventions
Interventions:
*Risk Screen - Suicide Last Done: 08/13/25 10:05
*General Assessment Last Done: 08/13/25 10:05
*Neglect/Abuse Screening Last Done: 08/13/25 10:05
*ED- Fall Risk Assessment Last Done: 08/13/25 10:05
*ED COVID-19 Vaccine History Last Done: 08/13/25 10:05
*ED Influenza Vaccine History Last Done: 08/13/25 10:05
OO-Nypfej-Uwksqrzcuc Assessment Last Done: 08/13/25 10:05
Discharge Date and Time
Print Language: DIVEHI
[2025-08-13] MEDS: VERSED 2 MG IV (12:11)
[2025-08-13] MEDS: HALDOL 2.5 MG IV (12:12)
[2025-08-13 12:54] LABS: Lipase 41 U/L (23-300)
[2025-08-13 13:35] LABS: COVID-19 Antigen Negative (Negative)
[2025-08-13 13:45] LABS: Troponin I < 0.012 ng/ml
[2025-08-13 13:47] LABS: Urine Character Clear (Clear)
[2025-08-13 13:53] LABS: Urine Squamous Cell 0-2 /LPF (Few)
[2025-08-13 13:54] LABS: Urine Red Blood Cell 26-30 /HPF (0-2); Urine White Cell 26-30 /HPF (0-5)
[2025-08-13] MEDS: KEFLEX 500 MG PO (14:29)
[2025-08-13] MEDS: TYLENOL 650 MG PO (14:30)
[2025-08-13] MEDS: NSS 500 IV (14:52)
[2025-08-13] MEDS: ATIVAN 1 MG PO (17:03)
== END 2025-08-13 18:04 ==
LOC: EMR 09:38
PROVIDERS: EMERGENCY PHYSICIAN Emergency Medicine
DX: K52.9 Noninfective gastroenteritis and colitis, unspecified (principal); G31.01 Pick's disease; F02.818 Dementia in other diseases classified elsewhere, unspecified severity, with other behavioral disturbance; Z87.891 Personal history of nicotine dependence; Z86.718 Personal history of other venous thrombosis and embolism; Z85.118 Personal history of other malignant neoplasm of bronchus and lung; Z11.52 Encounter for screening for COVID-19
CPT/HCPCS: 99285; 96374; 96375; 96361; 71046; 74177; 80053; 81003; 81015; 83690; 84484; 85025; 87086; 87502; 87811; 93005; Q9967